=== PATIENT | female | born 1930 | race Caucasian/White ===

== ENCOUNTER 2018-08-09 09:58 | Inpatient (IN) | payer MEDICARE, BC ==
[2018-08-09] MEDS ORDERED: ACETAMINOPHEN 325 MG TABLET PO ONE (10:22)
[2018-08-09] MEDS ORDERED: RINGERS SOLUTION,LACTATED 1,000 ML IV ONE (10:22)
[2018-08-09 10:35] LABS: ABSOLUTE BASOPHILS # (AUTO) 0.1 10^3/uL (0.0-0.2); ABSOLUTE MONOCYTES (AUTO) 0.7 10^3/uL (0.1-1.4); ABSOLUTE NEUT (AUTO) 13.4 10^3/uL (1.7-8.2); BASOPHILS % (AUTO) 0.4 % (0-2); EOSINOPHILS % (AUTO) 0.1 % (0-6); HEMATOCRIT 46.4 % (36.0-47.0); HEMOGLOBIN 15.6 g/dL (12.0-15.5); LYMPHOCYTES % (AUTO) 12.3 % (13-45); MEAN CORPUSCULAR HEMOGLOBIN 30.8 pg (27.0-33.4); MEAN CORPUSCULAR HGB CONC 33.6 g/dL (32.0-36.0); MEAN CORPUSCULAR VOLUME 92 fl (80-97); MONOCYTES % (AUTO) 4.5 % (3-13); PLATELET COUNT 176 10^3/uL (150-450); RED BLOOD COUNT 5.06 10^6/uL (3.72-5.28); RED CELL DISTRIBUTION WIDTH 15.4 % (11.5-14.0); SEGMENTED NEUTROPHILS % (AUTO) 82.7 % (42-78); TOTAL CELLS COUNTED % (AUTO) 100 %; WHITE BLOOD COUNT 16.2 10^3/uL (4.0-10.5)
[2018-08-09] MEDS ORDERED: DIPH/PERTUSS(ACELL)/TETANUS VAC/PF 0.5 ML SYR (>=10YO) IM ONE (10:38)
--- NOTE | 2018-08-09 10:38 | ER Document Report ---
ED General - General Stated Complaint: FALL/WEAKNESS Time Seen by Provider: 08/09/18 10:12 Notes: Patient is a 88-year-old female with hypertension that presents to the emergency department for chief complaint of fall, found on the ground. Patient states that she fell getting out of the bathroom this past Tuesday, and has been on the ground essentially since then she was able to crawl to her bed, and then was lying on her abdomen. She did urinate on herself as well. Her vaccine customer representative found her this morning, and they called EMS to bring her to the emergency department. She thinks she may have passed out from this episode as well, does not recall how long. She states she has life alert, but did not have it on her at that time. At this time she is complaining of generalized weakness, and generalized body aching, no focal pain or complaint. Denies having any headache, chest pain, shortness of breath or difficulty breathing, denies having any nausea or vomiting. Past Medical History: Hypertension, hypothyroidism Past Surgical History: Right shoulder surgery Social History: Currently lives at home by herself, denies tobacco or alcohol use. Family History: Reviewed and noncontributory for presenting illness Allergies: Reviewed, see documented allergy list. REVIEW OF SYSTEMS: Unless otherwise stated in this report the patient's positive and negative responses for review of systems for constitutional, eyes, ENT, cardiovascular, respiratory, gastrointestinal, neurological, genitourinary, musculoskeletal, and integumentary systems and related systems to the presenting problem are either as stated in the HPI or were not pertinent or were negative for the symptoms and/or complaints related to the presenting medical problem. PHYSICAL EXAMINATION: Vital signs reviewed, nursing noted reviewed. GENERAL: Elderly female, no immediate or acute distress HEAD: Superficial abrasions noted to the bilateral cheeks and forehead, normocephalic. EYES: Eyes appear normal, extraocular movements intact, sclera anicteric, conjunctiva are normal. ENT: nares patent, oropharynx clear without exudates. Moist mucous membranes. NECK: Normal range of motion, supple without lymphadenopathy LUNGS: Breath sounds clear to auscultation bilaterally and equal. No wheezes rales or rhonchi. HEART: Regular rate and rhythm without murmurs ABDOMEN: Soft, nontender, normoactive bowel sounds. No rebound, guarding, or rigidity. No masses appreciated. EXTREMITIES: Nontender, good range of motion, no pitting or edema. Multiple skin tears noted. NEUROLOGICAL: No focal neurological deficits. Moves all extremities spontaneously Motor and sensory grossly intact on exam. PSYCH: Normal mood, normal affect. SKIN: Warm, Dry, normal turgor, patient has excoriations noted to the abdomen, and the lower extremities, multiple skin tears noted to the upper and lower extremities. No deep lacerations noted. TRAVEL OUTSIDE OF THE [place] IN LAST 30 DAYS: No - Related Data Allergies/Adverse Reactions: No Known Allergies Allergy (Verified 08/09/18 11:03) Past Medical History - Social History Smoking Status: Former Smoker Family History: Reviewed & Not Pertinent Physical Exam - Vital signs Vitals: Temp Pulse Resp BP Pulse Ox 98.4 F 77 26 H 164/59 H 96 08/09/18 10:23 08/09/18 10:23 08/09/18 10:23 08/09/18 10:23 08/09/18 10:23 Course - Re-evaluation Re-evalutation: Patient seen and examined vital signs reviewed. Laboratory data and imaging were ordered as appropriate for the patient's presenting symptoms and complaint, with consideration of any critical or life threatening conditions that may be associated with their obtained history and exam as noted above. Patient was treated with IV fluids, and Tylenol, and her troponin came back marginally positive, I did give her 324 mg of chewable aspirin Results were reviewed when available and demonstrated elevated troponin at 0.11 , slightly elevated creatinine kinase, there was some protein and blood in her urine, presumed to be myoglobin, this was sent for myoglobin analysis, she did have a mild leukocytosis, the rest of her blood work however was essentially unremarkable, renal function was normal. CT of the head and cervical spine were negative, chest x-ray negative. The patient was re-evaluated and was improved and stated that her pain was tolerable, she was updated on her tetanus Evaluation was most consistent with multiple contusions, possible mild rhabdomyolysis, elevated troponin Results were discussed with the patient at this point after careful consideration I feel that that patient should be admitted to the hospital. This was discussed with the patient that it is in the best interest for their care to be admitted for further evaluation and management. Patient agreed with this plan of care. A call was placed to the admitted physician, FAUSTINA Chaves who graciously accepted the patient onto their service. *Note is created using voice recognition software and may contain spelling, syntax or grammatical errors. Laboratory 08/09/18 08/09/18 08/09/18 09:30 09:30 09:30 WBC 16.2 H RBC 5.06 Hgb 15.6 H Hct 46.4 MCV 92 MCH 30.8 MCHC 33.6 RDW 15.4 H Plt Count 176 Seg Neutrophils % 82.7 H Lymphocytes % 12.3 L Monocytes % 4.5 Eosinophils % 0.1 Basophils % 0.4 Absolute Neutrophils 13.4 H Absolute Lymphocytes 2.0 Absolute Monocytes 0.7 Absolute Eosinophils 0.0 Absolute Basophils 0.1 Sodium 143.3 Potassium 4.5 Chloride 110 H Carbon Dioxide 21 L Anion Gap 12 BUN 44 H Creatinine 0.99 Est GFR ( Amer) > 60 Est GFR (Non-Af Amer) 53 L Glucose 115 H Calcium 9.9 Total Bilirubin 0.8 Direct Bilirubin 0.3 Neonat Total Bilirubin Not Reportable Neonat Direct Bilirubin Not Reportable Neonat Indirect Bili Not Reportable AST 44 H ALT 25 Alkaline Phosphatase 116 Creatine Kinase 148 H Troponin I 0.117 NT-Pro-B Natriuret Pep Total Protein 7.1 Albumin 3.7 Urine Color Urine Appearance Urine pH Ur Specific [place] Urine Protein Urine Glucose (UA) Urine Ketones Urine Blood Urine Nitrite Urine Bilirubin Urine Urobilinogen Ur Leukocyte Esterase Urine RBC Urine WBC Ur Squamous Epith Cells Urine Bacteria Hyaline Casts Urine Mucus Urine Ascorbic Acid 08/09/18 08/09/18 08/09/18 13:15 13:24 13:24 WBC RBC Hgb Hct MCV MCH MCHC RDW Plt Count Seg Neutrophils % Lymphocytes % Monocytes % Eosinophils % Basophils % Absolute Neutrophils Absolute Lymphocytes Absolute Monocytes Absolute Eosinophils Absolute Basophils Sodium Potassium Chloride Carbon Dioxide Anion Gap BUN Creatinine Est GFR ( Amer) Est GFR (Non-Af Amer) Glucose Calcium Total Bilirubin Direct Bilirubin Neonat Total Bilirubin Neonat Direct Bilirubin Neonat Indirect Bili AST ALT Alkaline Phosphatase Creatine Kinase Troponin I 0.126 NT-Pro-B Natriuret Pep 2580 H Total Protein Albumin Urine Color YELLOW Urine Appearance SLIGHTLY HAZY Urine pH 5.0 Ur Specific [place] 1.020 Urine Protein 100 H Urine Glucose (UA) 50 H Urine Ketones 25 H Urine Blood SMALL H Urine Nitrite NEGATIVE Urine Bilirubin NEGATIVE Urine Urobilinogen NEGATIVE Ur Leukocyte Esterase NEGATIVE Urine RBC 0-1 Urine WBC 0-1 Ur Squamous Epith Cells FEW Urine Bacteria TRACE Hyaline Casts 20-30 Urine Mucus 3+ Urine Ascorbic Acid NEGATIVE Knee X-Ray 08/09/18 00:00 IMPRESSION: Knee joint effusion. No acute fracture. Osteoarthritis patellofemoral and medial compartments Cervical Spine CT 08/09/18 10:22 IMPRESSION: No acute posttraumatic changes. Minimal degenerative change. Head CT 08/09/18 10:22 IMPRESSION: NO ACUTE INTRACRANIAL IMAGING FINDINGS. Mild mucosal thickening both maxillary sinuses. EVIDENCE OF ACUTE STROKE: NO. Chest X-Ray 08/09/18 10:23 IMPRESSION: NO ACUTE RADIOGRAPHIC FINDING IN THE CHEST. - Vital Signs Vital signs: Temp Pulse Resp BP Pulse Ox 97.8 F 70 17 132/60 H 98 08/09/18 17:15 08/09/18 17:15 08/09/18 17:15 08/09/18 17:15 08/09/18 17:15 - Laboratory Result Diagrams: 08/09/18 09:30 08/09/18 09:30 Laboratory results interpreted by me: 08/09/18 08/09/18 08/09/18 09:30 09:30 13:15 WBC 16.2 H Hgb 15.6 H RDW 15.4 H Seg Neutrophils % 82.7 H Lymphocytes % 12.3 L Absolute Neutrophils 13.4 H Chloride 110 H Carbon Dioxide 21 L BUN 44 H Est GFR (Non-Af Amer) 53 L Glucose 115 H AST 44 H Creatine Kinase 148 H NT-Pro-B Natriuret Pep Urine Protein 100 H Urine Glucose (UA) 50 H Urine Ketones 25 H Urine Blood SMALL H 08/09/18 13:24 WBC Hgb RDW Seg Neutrophils % Lymphocytes % Absolute Neutrophils Chloride Carbon Dioxide BUN Est GFR (Non-Af Amer) Glucose AST Creatine Kinase NT-Pro-B Natriuret Pep 2580 H Urine Protein Urine Glucose (UA) Urine Ketones Urine Blood - EKG Interpretation by Me Additional EKG results interpreted by me: EKG demonstrates sinus rhythm with single PAC, normal axis, QTC 514 ms, small Q waves noted in leads II, III and aVF, no ST or T wave changes noted. No prior for comparison. Discharge - Discharge Clinical Impression: Elevated troponin, Skin tear Closed head injury Qualifiers: Encounter type: initial encounter Qualified Code(s): S09.90XA - Unspecified injury of head, initial encounter Fall Qualifiers: Encounter type: initial encounter Qualified Code(s): W19.XXXA - Unspecified fall, initial encounter Leukocytosis Qualifiers: Leukocytosis type: unspecified Qualified Code(s): D72.829 - Elevated white blood cell count, unspecified Condition: Stable Disposition: ADMITTED OBSERVATION Admitting Provider: Dania Chaves Unit Admitted: Telemetry
[2018-08-09 10:57] LABS: ALANINE AMINOTRANSFERASE 25 U/L (9-52); ALBUMIN 3.7 g/dL (3.5-5.0); ALKALINE PHOSPHATASE 116 U/L (38-126); ANION GAP 12 (5-19); ASPARTATE AMINO TRANSFERASE 44 U/L (14-36); BILIRUBIN,DIRECT 0.3 mg/dL (0.0-0.4); BILIRUBIN,TOTAL 0.8 mg/dL (0.2-1.3); BLOOD UREA NITROGEN 44 mg/dL (7-20); CALCIUM 9.9 mg/dL (8.4-10.2); CARBON DIOXIDE 21 mmol/L (22-30); CHLORIDE 110 mmol/L (98-107); CREATINE KINASE 148 U/L (30-135); GLUCOSE 115 mg/dL (75-110); POTASSIUM 4.5 mmol/L (3.6-5.0); SODIUM 143.3 mmol/L (137-145); TOTAL PROTEIN 7.1 g/dL (6.3-8.2)
--- NOTE | 2018-08-09 11:04 | RADIOLOGY REPORT (SQ) ---
EXAM DESCRIPTION: CHEST SINGLE VIEW COMPLETED DATE/TIME: 08/09/2018 10:43 am REASON FOR STUDY: fall, syncope COMPARISON: None. EXAM PARAMETERS: NUMBER OF VIEWS: One view. TECHNIQUE: Single frontal radiographic view of the chest acquired. RADIATION DOSE: NA LIMITATIONS: None. FINDINGS: LUNGS AND PLEURA: No opacities, masses or pneumothorax. No pleural effusion. Cardiophreni c fat pad left base. MEDIASTINUM AND HILAR STRUCTURES: No masses. Contour normal. HEART AND VASCULAR STRUCTURES: Heart normal in size. Normal vasculature. BONES: Status post right total shoulder replacement. Severe degenerative change left shoulder HARDWARE: None in the chest. OTHER: No other significant finding. IMPRESSION: NO ACUTE RADIOGRAPHIC FINDING IN THE CHEST. TECHNICAL DOCUMENTATION: JOB ID: [id number] [employer]- All Rights Reserved Reading location - IP/workstation name: [email or web address]
[2018-08-09] MEDS ORDERED: ASPIRIN 81 MG TABLET, CHEWABLE PO ONE (11:10)
--- NOTE | 2018-08-09 12:00 | RADIOLOGY REPORT (SQ) ---
EXAM DESCRIPTION: CT HEAD WITHOUT COMPLETED DATE/TIME: 08/09/2018 11:43 am REASON FOR STUDY: fall, head injury COMPARISON: None. TECHNIQUE: Axial images acquired through the brain without intravenous contrast. Images reviewed wi th bone, brain and subdural windows. Additional sagittal and coronal reconstructions were generated. Images stored on PACS. All CT scanners at this facility use dose modulation, iterative reconstruction, and/or weight based d osing when appropriate to reduce radiation dose to as low as reasonably achievable (ALARA). [facility]: Dose Right [facility]: CareDose [facility]: Dose Right [facility]: Teradose 4D [facility]: Smart Six3 RADIATION DOSE: CT Rad equipment meets quality standard of care and radiation dose reduction techniq ues were employed. CTDIvol: 53.2 mGy. DLP: 937 mGy-cm. mGy. LIMITATIONS: None. FINDINGS: VENTRICLES: Prominent ventricles secondary to involutional atrophy. CEREBRUM: No masses. No hemorrhage. No midline shift. No evidence for acute infarction. Normal gra y/white matter differentiation. No areas of low density in the white matter. CEREBELLUM: No masses. No hemorrhage. No alteration of density. No evidence for acute infarction. EXTRAAXIAL SPACES: No fluid collections. No masses. ORBITS AND GLOBE: No intra- or extraconal masses. Normal contour of globe without masses. CALVARIUM: No fracture. PARANASAL SINUSES: Mild mucosal thickening maxillary sinuses. SOFT TISSUES: No mass or hematoma. OTHER: No other significant finding. IMPRESSION: NO ACUTE INTRACRANIAL IMAGING FINDINGS. Mild mucosal thickening both maxillary sinuses. EVIDENCE OF ACUTE STROKE: NO. COMMENT: Quality ID # [id number]: Final reports with documentation of one or more dose reduction techniques (e.g., Automated exposure control, adjustment of the mA and/or kV according to patient size, use of iterative reconstruction technique) TECHNICAL DOCUMENTATION: JOB ID: [id number] [employer]- All Rights Reserved Reading location - IP/workstation name: [email or web address]
--- NOTE | 2018-08-09 12:02 | RADIOLOGY REPORT (SQ) ---
EXAM DESCRIPTION: CT CERVICAL SPINE WITHOUT COMPLETED DATE/TIME: 08/09/2018 11:43 am REASON FOR STUDY: fall, head injury COMPARISON: None. TECHNIQUE: Axial images acquired through the cervical spine without intravenous contrast. Images re viewed with lung, soft tissue and bone windows. Reconstructed coronal and sagittal MPR images review ed. Images stored on PACS. All CT scanners at this facility use dose modulation, iterative reconstruction, and/or weight based d osing when appropriate to reduce radiation dose to as low as reasonably achievable (ALARA). [facility]: Dose Right [facility]: CareDose [facility]: Dose Right [facility]: Teradose 4D [facility]: [employer] RADIATION DOSE: CT Rad equipment meets quality standard of care and radiation dose reduction techniq ues were employed. CTDIvol: 15.3 mGy. DLP: 241 mGy-cm. mGy. LIMITATIONS: None. FINDINGS: ALIGNMENT: Anatomic. MINERALIZATION: Normal. VERTEBRAL BODIES: No fractures or dislocation. DISCS: No significant disc disease. FACETS, LATERAL MASSES, POSTERIOR ELEMENTS: Moderate facet arthropathy lower spine. HARDWARE: None in the spine. VISUALIZED RIBS: No fractures. LUNG APICES AND SOFT TISSUES: No significant or acute findings. OTHER: No other significant finding. IMPRESSION: No acute posttraumatic changes. Minimal degenerative change. TECHNICAL DOCUMENTATION: JOB ID: [id number] Quality ID # [id number]: Final reports with documentation of one or more dose reduction techniques (e.g., Au tomated exposure control, adjustment of the mA and/or kV according to patient size, use of iterative reconstruction technique) 2010 [email or web address]- All Rights Reserved Reading location - IP/workstation name: [email or web address]
[2018-08-09 13:48] LABS: APPEARANCE,URINE SLIGHTLY HAZY; BILIRUBIN,URINE NEGATIVE (NEGATIVE); GLUCOSE, URINE 50 mg/dL (NEGATIVE); KETONES,URINE 25 mg/dL (NEGATIVE)
[2018-08-09 13:49] LABS: ADD MANUAL MICROSCOPIC YES; BACTERIA,URINE TRACE /HPF; COLOR,URINE YELLOW; HYALINE CASTS, URINE 20-30 /LPF; LEUKOCYTE ESTERASE,URINE NEGATIVE (NEGATIVE); NITRITE,URINE NEGATIVE (NEGATIVE); PROTEIN,URINE 100 mg/dL (NEGATIVE); RBC,URINE 0-1 /HPF; UROBILINOGEN,URINE NEGATIVE mg/dL (<2.0); WBC,URINE 0-1 /HPF
[2018-08-09] MEDS ORDERED: MAG HYDROX/AL HYDROX/SIMETH SUSP 30 ML UDCUP PO PRN (15:50)
[2018-08-09] MEDS ORDERED: PROMETHAZINE HCL 25 MG TABLET PO PRN (15:50)
[2018-08-09] MEDS ORDERED: MAGNESIUM HYDROXIDE SUSP 30 ML UDCUP PO PRN (15:50)
[2018-08-09] MEDS ORDERED: PROMETHAZINE HCL INJ 25 MG/1 ML VIAL IV PRN (15:50)
[2018-08-09] MEDS ORDERED: NITROGLYCERIN 0.4 MG/TAB 25 TAB/BOTTLE SL PRN (16:08)
--- NOTE | 2018-08-09 16:14 | PDOC H&P ---
History of Present Illness Admission Date/PCP: 08/09/18 15:23 RICHI BRAY MD History of Present Illness: JESUS CLARK is a 88 year old female with a known past medical history of hypertension, hypothyroidism; otherwise MHx is limited secondary to patient confusion/and willingness to participate in conversation. The patient was found by her group practice pediatrician this morning on the floor. Per patient she fell approximately 4 days ago when her knees gave out on her. She was able to crawl to the bed but was unable to stand back up or reach a phone for assistance. The patient reports that she did hit her head but denies loss of consciousness. Upon being told that the patient was recommended to be admitted, she refused to answer further questions. She was noted to be alert and oriented to self and year. She denied headache, dizziness, chest pain, palpitations, dyspnea and only complaint of left knee pain. Evaluation in the emergency department revealed leukocytosis (WBCs 16.2), dehydration (elevated hemoglobin of 15.6, BUN of 44, and creatinine of 0.99), minimally elevated CK (148), and an elevated troponin to 0.117. EKG was without acute findings; no ST segment elevation or depression. Chest x- ray, head CT, C-spine CT are unremarkable other than chronic changes. She is referred to the hospitalist service for admission and management of a type II non-STEMI, dehydration, generalized weakness resulting in fall. Past Medical History Cardiac Medical History: Reports: Hypertension Denies: Coronary Artery Disease, Myocardial Infarction, Hyperlipidema Pulmonary Medical History: Reports: None EENT Medical History: Reports: None Neurological Medical History: Reports: None Endocrine Medical History: Reports: Hypothyroidism Denies: Diabetes Mellitus Type 2 Renal/ Medical History: Reports: None GI Medical History: Reports: None Musculoskeltal Medical History: Reports: Arthritis Skin Medical History: Reports: None Psychiatric Medical History: Reports: None Traumatic Medical History: Reports: None Hematology: Reports: None Infectious Medical History: Reports: None Past Surgical History Past Surgical History: Reports: Cholecystectomy, Hysterectomy, Orthopedic Surgery - Rt shoulder Social History Information Source: Patient, Relative, [facility] Records Lives with: Alone Smoking Status: Never Smoker Frequency of Alcohol Use: None Hx Recreational Drug Use: No Hx Prescription Drug Abuse: No - Advance Directive Resuscitation Status: Full Code Surrogate healthcare decision maker:: Patient unwilling to state. Family History Family History: Reviewed & Not Pertinent Parental Family History Reviewed: Yes Children Family History Reviewed: Yes Sibling(s) Family History Reviewed.: Yes Medication/Allergy Home Medications: Amlodipine Besylate [Norvasc 5 mg Tablet] 5 mg PO QHS 08/09/18 Aspirin [Aspirin EC] 81 mg PO DAILY 08/09/18 Hydroxyzine HCl [Hydroxyzine HCl] 25 mg PO HSP PRN 08/09/18 Levothyroxine Sodium [Synthroid 0.1 mg Tablet] 0.1 mg PO Q6AM 08/09/18 Allergies/Adverse Reactions: No Known Allergies Allergy (Verified 08/09/18 11:03) Review of Systems Constitutional: PRESENT: weakness. ABSENT: chills, fever(s), headache(s), weight gain, weight loss Eyes: ABSENT: visual disturbances Ears: ABSENT: hearing changes Cardiovascular: ABSENT: chest pain, dyspnea on exertion, edema, orthropnea, palpitations Respiratory: ABSENT: cough, hemoptysis Gastrointestinal: ABSENT: abdominal pain, constipation, diarrhea, hematemesis, hematochezia, nausea, vomiting Genitourinary: ABSENT: dysuria, hematuria Musculoskeletal: PRESENT: joint swelling - Left main, muscle weakness Integumentary: ABSENT: rash, wounds Neurological: PRESENT: confusion, tremor(s) - Right hand. ABSENT: abnormal gait , abnormal speech, dizziness, focal weakness, syncope Psychiatric: ABSENT: anxiety, depression, homidical ideation, suicidal ideation Endocrine: ABSENT: cold intolerance, heat intolerance, polydipsia, polyuria Hematologic/Lymphatic: ABSENT: easy bleeding, easy bruising Physical Exam Vital Signs: Temp Pulse Resp BP Pulse Ox 98.4 F 77 26 H 164/59 H 96 08/09/18 10:23 08/09/18 10:23 08/09/18 10:23 08/09/18 10:23 08/09/18 10:23 General appearance: PRESENT: no acute distress, well-developed, well-nourished - Overweight. ABSENT: cooperative - Refuses to answer questions once told that she is being recommended to be admitted Head exam: PRESENT: atraumatic, normocephalic Eye exam: PRESENT: conjunctiva pink, EOMI, PERRLA. ABSENT: scleral icterus Ear exam: PRESENT: normal external ear exam Mouth exam: PRESENT: dry mucosa, tongue midline Neck exam: ABSENT: carotid bruit, JVD, lymphadenopathy, thyromegaly Respiratory exam: PRESENT: clear to auscultation mildred, symmetrical, unlabored. ABSENT: rales, rhonchi, wheezes Cardiovascular exam: PRESENT: clicks, RRR, systolic murmur. ABSENT: diastolic murmur, rubs Pulses: PRESENT: normal dorsalis pedis pul Vascular exam: PRESENT: normal capillary refill GI/Abdominal exam: PRESENT: normal bowel sounds, soft. ABSENT: distended, guarding, mass, organolmegaly, rebound, tenderness Rectal exam: PRESENT: deferred Extremities exam: PRESENT: full ROM, tenderness - Generalized; especially to bilateral knees and upper extremities. ABSENT: calf tenderness, clubbing, pedal edema Neurological exam: PRESENT: alert, awake, oriented to person, oriented to time, oriented to situation, CN II-XII grossly intact, other - Exam limited secondary to patient participation. ABSENT: oriented to place, motor sensory deficit Psychiatric exam: PRESENT: other - Withdrawn. ABSENT: homicidal ideation, suicidal ideation Skin exam: PRESENT: dry, warm, other - Numerous ecchymosis and skin tears to extremities; abrasion to right cheek with periorbital edema, skin tears to bilateral upper extremities (no surrounding erythema or drainage), 2 cm round unstageable pressure wound to left knee with fluid-filled blister intact over wound, erythema and edema to bilateral knees. ABSENT: cyanosis, rash Results Impressions: Cervical Spine CT 08/09/18 10:22 IMPRESSION: No acute posttraumatic changes. Minimal degenerative change. Head CT 08/09/18 10:22 IMPRESSION: NO ACUTE INTRACRANIAL IMAGING FINDINGS. Mild mucosal thickening both maxillary sinuses. EVIDENCE OF ACUTE STROKE: NO. Chest X-Ray 08/09/18 10:23 IMPRESSION: NO ACUTE RADIOGRAPHIC FINDING IN THE CHEST. Assessment & Plan - Diagnosis (1) Non-STEMI (non-ST elevated myocardial infarction) Is this a current diagnosis for this admission?: Yes Plan: On admission, the patient was noted to have an elevated troponin to 0.117; trending upwards. Currently 0.126. It is unclear whether the patient had a primary cardiac event, though it is most likely troponin leak following fall. CK is minimally elevated to 148. Renal function is acceptable. Myoglobin is pending. Chest x-ray is benign. EKG reveals NSR with prolonged QTC. No acute changes/ST segment elevation or depression. The patient is admitted to the medical floor on continuous cardiac telemetry. We will continue to trend troponins. She is placed on daily aspirin and statin therapy. We will continue her home dose Norvasc. Nitroglycerin SL tabs as needed for chest pain.nitro Will obtain TSH, lipid panel, and A1c for risk stratification with a.m. labs. Cardiology consultation. Given the timing of the patient's fall, like a previous cardiac history and recent cardiac symptoms, and continued upward trend of troponin, it is unlikely that cardiac event precipitated her fall and more likely to be troponin leak despite reassuring kidney function and CK. Will defer full dose anticoagulation to cardiology's discretion. (2) Dehydration Is this a current diagnosis for this admission?: Yes Plan: Secondary to poor p.o. intake as a result of fall and immobility times 4 days. Evidenced by elevated hemoglobin, elevated BUN, mildly elevated creatinine. The patient has already received a 1 L LR bolus by the ED provider. We will continue maintenance IV fluids. Encourage p.o. intake. Strict I&O's. Daily chemistry (3) HTN (hypertension) Is this a current diagnosis for this admission?: Yes Plan: We will continue the patient's home dose Norvasc. (4) Hypothyroid Is this a current diagnosis for this admission?: Yes Plan: Will assess TSH with a.m. labs. Continue the patient's home dose of levothyroxine. (5) Leukocytosis Qualifiers: Leukocytosis type: unspecified Qualified Code(s): D72.829 - Elevated white blood cell count, unspecified (6) Fall Qualifiers: Encounter type: initial encounter Qualified Code(s): W19.XXXA - Unspecified fall, initial encounter Is this a current diagnosis for this admission?: Yes Plan: The patient reports that she had a fall at home due to her knees giving out. The patient is typically independently ambulatory without assistive devices. Per family, the patient is able to climb a flight of stairs and completes her own grocery shopping while ambulatory. PT/OT evaluations. Fall precautions. Discharge planning is consulted; anticipate the patient will require rehab versus home health at discharge. (7) Left knee pain Qualifiers: Chronicity: acute Qualified Code(s): M25.562 - Pain in left knee Is this a current diagnosis for this admission?: Yes Plan: Patient's knee is noted to have a 2 cm unstageable pressure wound to her knee with medial erythema and generalized edema following a fall. X-ray pending. Tylenol as needed for discomfort. Ice and repositioning for discomfort. - Time Time Spent: 50 to 70 Minutes Medications reviewed and adjusted accordingly: Yes Anticipated discharge: Acute Rehab - Inpatient Certification Based on my medical assessment, after consideration of the patient's comorbidities, presenting symptoms, or acuity I expect that the services needed warrant INPATIENT care.: Yes I certify that my determination is in accordance with my understanding of Medicare's requirements for reasonable and necessary INPATIENT services [42 CFR 412.3e].: Yes Medical Necessity: Need For IV Fluids, Need For Continuous Telemetry Monitoring
[2018-08-09] MEDS: RINGERS SOLUTION,LACTATED 1,000 ML IV PRN (16:17)
--- NOTE | 2018-08-09 16:27 | RADIOLOGY REPORT (SQ) ---
EXAM DESCRIPTION: KNEE LEFT 3 VIEWS COMPLETED DATE/TIME: 08/09/2018 4:13 pm REASON FOR STUDY: fall, lt knee pain and edema I21.4 NON-ST ELEVATION (NSTEMI) MYOCARDIAL INFARCTIO N R73.9 HYPERGLYCEMIA, UNSPECIFIED E03.9 HYPOTHYROIDISM, UNSPECIFIED Fell 4 days ago, continued knee pain and swelling COMPARISON: None. NUMBER OF VIEWS: Two views. TECHNIQUE: AP and lateral radiographic images acquired of the left knee. LIMITATIONS: None. FINDINGS: MINERALIZATION: Osteopenic BONES: No acute fracture or dislocation. No worrisome bone lesions. JOINT: Suprapatellar knee joint effusion SOFT TISSUES: No soft tissue swelling. No radio-opaque foreign body. OTHER: High-grade medial and patellofemoral joint space narrowing with bony spurring IMPRESSION: Knee joint effusion. No acute fracture. Osteoarthritis patellofemoral and medial stacy rtments TECHNICAL DOCUMENTATION: JOB ID: [id number] [employer] All Rights Reserved Reading location - IP/workstation name: [email or web address]
--- NOTE | 2018-08-09 18:18 | EKG REPORT ---
SEVERITY:- ABNORMAL ECG - SINUS RHYTHM ATRIAL PREMATURE COMPLEX PROBABLE LEFT ATRIAL ABNORMALITY PROLONGED QT INTERVAL : Confirmed by: Jazmyne Dwyer MD 09-Aug-2018 18:17:03
[2018-08-09] MEDS: DOCUSATE SODIUM 100 MG CAPSULE PO SCH (18:54)
--- NOTE | 2018-08-09 20:09 | PDOC CONSULTATION ---
Consultation Consult Date: 08/09/18 Attending physician:: MICHAEL HERNANDEZ Consult reason:: Positive troponin I History of Present Illness Admission Date/PCP: 08/09/18 15:44 RICHI BRAY MD Patient complains of: History of fall and generalized body pain History of Present Illness: JESUS CLARK is a 88 year old female with a known past medical history of hypertension, hypothyroidism; otherwise MHx is limited secondary to patient confusion/and willingness to participate in conversation. The patient was found by her web press operator apprentice this morning on the floor. Per patient she fell approximately 4 days ago when her knees gave out on her. She was able to crawl to the bed but was unable to stand back up or reach a phone for assistance. The patient reports that she did hit her head but denies loss of consciousness. Upon being told that the patient was recommended to be admitted, she refused to answer further questions. She was noted to be alert and oriented to self and year. She denied headache, dizziness, chest pain, palpitations, dyspnea and only complaint of left knee pain. Evaluation in the emergency department revealed leukocytosis (WBCs 16.2), dehydration (elevated hemoglobin of 15.6, BUN of 44, and creatinine of 0.99), minimally elevated CK (148), and an elevated troponin to 0.117. EKG was without acute findings; no ST segment elevation or depression. Chest x- ray, head CT, C-spine CT are unremarkable other than chronic changes. She is referred to the hospitalist service for admission and management of a type II non-STEMI, dehydration, generalized weakness resulting in fall. This history was confirmed and reviewed. Patient is son and daughter at bedside. They could not add much to the exam. Past Medical History Cardiac Medical History: Reports: Hypertension Denies: Coronary Artery Disease, Myocardial Infarction, Hyperlipidema Pulmonary Medical History: Reports: None EENT Medical History: Reports: None Neurological Medical History: Reports: None Endocrine Medical History: Reports: Hypothyroidism Denies: Diabetes Mellitus Type 2 Renal/ Medical History: Reports: None GI Medical History: Reports: None Musculoskeltal Medical History: Reports: Arthritis Skin Medical History: Reports: None Psychiatric Medical History: Reports: None Denies: Depression Traumatic Medical History: Reports: None Hematology: Reports: None Infectious Medical History: Reports: None Past Surgical History Past Surgical History: Reports: Cholecystectomy, Hysterectomy, Orthopedic Surgery - Rt shoulder Social History Information Source: Relative Lives with: Alone Smoking Status: Former Smoker Frequency of Alcohol Use: None Hx Recreational Drug Use: No Drugs: None Hx Prescription Drug Abuse: No - Advance Directive Resuscitation Status: Full Code Surrogate healthcare decision maker:: Patient's son and daughter at the surrogate decision-maker Family History Family History: Hypertension Parental Family History Reviewed: Yes Children Family History Reviewed: Yes Sibling(s) Family History Reviewed.: Yes Medication/Allergy Home Medications: Amlodipine Besylate [Norvasc 5 mg Tablet] 5 mg PO QHS 08/09/18 Aspirin [Aspirin EC] 81 mg PO DAILY 08/09/18 Hydroxyzine HCl [Hydroxyzine HCl] 25 mg PO HSP PRN 08/09/18 Levothyroxine Sodium [Synthroid 0.1 mg Tablet] 0.1 mg PO Q6AM 08/09/18 Allergies/Adverse Reactions: No Known Allergies Allergy (Verified 08/09/18 11:03) Review of Systems ROS unobtainable: Due to mental status Physical Exam Vital Signs: Temp Pulse Resp BP Pulse Ox 97.7 F 73 17 134/49 H 97 08/09/18 19:00 08/09/18 19:00 08/09/18 19:00 08/09/18 19:00 08/09/18 19:00 Intake & Output 08/08/18 08/09/18 08/10/18 06:59 06:59 06:59 Intake Total 52 Balance 52 Weight 70.8 kg Exam: GENERAL: well-nourished and in no acute distress. Patient is alert but orientation could not be checked as either patient is confused or is not willing to answer. HEAD: Atraumatic, normocephalic. EYES: Pupils equal round and reactive to light, extraocular movements intact, sclera anicteric, conjunctiva are normal. ENT: TMs normal, nares patent, oropharynx clear without exudates. Moist mucous membranes. No oral ulcerations or bleeding gums noted NECK: supple without lymphadenopathy or JVD. Trachea is central. No cervical or axillary lymphadenopathy noted. Carotids are 2+ LUNGS: Breath sounds bibasilar fine crackles at bases. No significant dullness noted. CHEST: Palpation of chest wall shows no significant chest wall tenderness. HEART: [place] [employer] CHIEF, No PSH, 2/6 HENRY aortic area, 1/6 farfan systolic murmur mitral area, rubs or gallops. ABDOMEN: Soft, no significant tenderness appreciated, normoactive bowel sounds. No guarding, no rebound. No rigidity noted . No masses appreciated. EXTREMITIES: Pedal pulses are 1-2+, no calf tenderness noted, Trace + pedal edema noted. No clubbing or cyanosis. NEUROLOGICAL: Patient is alert but is not able to participate in neurological exam because of patient's current mental status. PSYCH: Patient cannot participate in a neurologic and psych exam because of the patient's current mental status SKIN: No significant ecchymosis, rash, ulcerations or signs of pruritus noted. MUSCULOSKELETAL EXAM: No significant joint swelling noted. Results EKG Comments: Shows sinus rhythm, no acute ST-T wave changes are noted. Impressions: Knee X-Ray 08/09/18 00:00 IMPRESSION: Knee joint effusion. No acute fracture. Osteoarthritis patellofemoral and medial compartments Cervical Spine CT 08/09/18 10:22 IMPRESSION: No acute posttraumatic changes. Minimal degenerative change. Head CT 08/09/18 10:22 IMPRESSION: NO ACUTE INTRACRANIAL IMAGING FINDINGS. Mild mucosal thickening both maxillary sinuses. EVIDENCE OF ACUTE STROKE: NO. Chest X-Ray 08/09/18 10:23 IMPRESSION: NO ACUTE RADIOGRAPHIC FINDING IN THE CHEST. Assessment & Plan - Diagnosis (1) Elevated troponin Is this a current diagnosis for this admission?: Yes (2) HTN (hypertension) Qualifiers: Hypertension type: essential hypertension Qualified Code(s): I10 - Essential (primary) hypertension Is this a current diagnosis for this admission?: Yes (3) Mitral stenosis Qualifiers: Cardiac valve disease etiology: etiology unspecified Qualified Code(s): I05.0 - Rheumatic mitral stenosis Is this a current diagnosis for this admission?: Yes (4) Fall Qualifiers: Encounter type: initial encounter Qualified Code(s): W19.XXXA - Unspecified fall, initial encounter Is this a current diagnosis for this admission?: Yes (5) Change in mental status Qualifiers: Altered mental status type: unspecified Qualified Code(s): R41.82 - Altered mental status, unspecified Is this a current diagnosis for this admission?: Yes (6) Non-STEMI (non-ST elevated myocardial infarction) Is this a current diagnosis for this admission?: Yes - Notes Notes: Patient had a fall, most likely related to transient hypotension, transient arrhythmias. Acute mental status changes: Cause not clear, possible CVA, possible severe depression, possible dehydration and other metabolic reasons. Hypertension: Under reasonable control. Continue with home antihypertensives. Non-STEMI: Type II, currently EKG not showing any acute ischemic changes. Patient does not have any chest pain but positive troponin I. Do not believe patient has acute coronary syndrome. Troponin I elevation most likely related to transient hypotension or arrhythmias resulting in fall. Have ordered a 2D echo. Recommend antiplatelet therapy, cardiac monitoring for any transient cardiac arrhythmias. Do not feel ischemia workup is indicated. We will continue to follow patient with you. - Time Time Spent: 30 to 50 Minutes - CODE STATUS was discussed, patient remains full code. Surrogate decision-maker patient's son and daughter. Multiple medical problems were addressed. More than 50% of the time spent coordinating care, discussing management plans with involved caregivers. Management plans discussed with involved personnels. Medical decision making was of moderate to high complexity, patient's has multiple comorbidities. Medications reviewed and adjusted accordingly: Yes
[2018-08-09] MEDS: FAMOTIDINE 20 MG TABLET PO SCH (21:29)
[2018-08-09] MEDS: HEPARIN SOD (PORCINE) 5,000 UNIT/ML 1 ML SYRINGE SUBCUT SCH (21:30)
[2018-08-09] MEDS ORDERED: ATORVASTATIN CALCIUM 20 MG TABLET PO SCH (22:00)
[2018-08-09] MEDS ORDERED: AMLODIPINE BESYLATE 5 MG TABLET PO SCH (22:00)
[2018-08-10] MEDS: LEVOTHYROXINE SODIUM 0.1 MG TABLET PO SCH (05:14)
[2018-08-10] MEDS: HEPARIN SOD (PORCINE) 5,000 UNIT/ML 1 ML SYRINGE SUBCUT SCH ×3 (05:14→21:03)
[2018-08-10 08:11] LABS: ABSOLUTE BASOPHILS # (AUTO) 0.1 10^3/uL (0.0-0.2); ABSOLUTE EOSINOPHILS # (AUTO) 0.3 10^3/uL (0.0-0.6); ABSOLUTE LYMPHOCYTES (AUTO) 1.5 10^3/uL (0.5-4.7); ABSOLUTE MONOCYTES (AUTO) 0.7 10^3/uL (0.1-1.4); ABSOLUTE NEUT (AUTO) 8.8 10^3/uL (1.7-8.2); BASOPHILS % (AUTO) 0.6 % (0-2); EOSINOPHILS % (AUTO) 2.7 % (0-6); HEMATOCRIT 37.4 % (36.0-47.0); LYMPHOCYTES % (AUTO) 13.5 % (13-45); MEAN CORPUSCULAR HGB CONC 32.9 g/dL (32.0-36.0); MEAN CORPUSCULAR VOLUME 91 fl (80-97); MONOCYTES % (AUTO) 5.8 % (3-13); PLATELET COUNT 115 10^3/uL (150-450); RED BLOOD COUNT 4.11 10^6/uL (3.72-5.28); SEGMENTED NEUTROPHILS % (AUTO) 77.4 % (42-78); TOTAL CELLS COUNTED % (AUTO) 100 %; WHITE BLOOD COUNT 11.3 10^3/uL (4.0-10.5)
[2018-08-10 08:14] LABS: HEMOGLOBIN 12.3 g/dL (12.0-15.5)
[2018-08-10 08:15] LABS: ALANINE AMINOTRANSFERASE 31 U/L (9-52); ALBUMIN 2.5 g/dL (3.5-5.0); ALKALINE PHOSPHATASE 76 U/L (38-126); ASPARTATE AMINO TRANSFERASE 39 U/L (14-36); BILIRUBIN,DIRECT 0.2 mg/dL (0.0-0.4); BILIRUBIN,TOTAL 0.6 mg/dL (0.2-1.3); BLOOD UREA NITROGEN 33 mg/dL (7-20); CALCIUM 8.4 mg/dL (8.4-10.2); CREATINE KINASE 100 U/L (30-135); GLUCOSE 109 mg/dL (75-110); POTASSIUM 3.8 mmol/L (3.6-5.0); TOTAL PROTEIN 5.2 g/dL (6.3-8.2); TRIGLYCERIDES 108 mg/dL (<150)
[2018-08-10 08:16] LABS: CHOLESTEROL 126.84 mg/dL (0-200)
[2018-08-10 08:21] LABS: CARBON DIOXIDE 25 mmol/L (22-30); CHLORIDE 106 mmol/L (98-107); SODIUM 134.8 mmol/L (137-145)
[2018-08-10 08:27] LABS: DIRECT LDL 56 mg/dL (<100)
[2018-08-10 08:28] LABS: ANION GAP 4 (5-19)
--- NOTE | 2018-08-10 09:31 | XCELERA REPORT ---
[address] [address] Transthoracic Echocardiogram Report Name: JESUS CLARK Age: 88 yrs Gender: Female : 1930 Patient Status: Inpatient Patient Location: [address] [place], [place] [address] Study Date: 08/09/2018 07:43 PM Height: 65 in Weight: 156 lb BSA: 1.8 m2 Procedure: A complete two-dimensional transthoracic echocardiogram was performed (2D, M-mode, spectral and color flow Doppler). The study was technically difficult with many images being suboptimal in quality. Reason For Study: Troponin positive Ordering Physician: JAYCOB GOVEA Performed By: Milana Oakes Interpretation Summary Normal LVEF, mild LVH LV diastolic function could not be adequately assessed due to significant valve regurgitation and/or stenosis. Mitral valve is thickened and calcified with reduced mobility. Moderate to severe mitral stenosis suspected. Evaluation of mitral stenosis is somewhat complicated due to presence of moderate aortic regurgitation and suboptimal quality of the 2D echo. Moderate aortic incompetence is noted. Recommend transesophageal echocardiogram, cardiac MRI or cardiac CTA for further evaluation if clinically indicated. Study was technically difficult therefore clinical correlation is requested. MMode/2D Measurements & Calculations RVDd: 2.6 cm LVIDd: 3.2 cm FS: 30.8 % Ao root diam: 2.8 cm IVSd: 1.1 cm LVIDs: 2.2 cm EDV(Teich): 41.5 ml Ao root area: 6.0 cm2 LVPWd: 0.93 cm ESV(Teich): 16.7 ml LA dimension: 2.7 cm EF(Teich): 59.8 % Doppler Measurements & Calculations MV E max luly: MV P1/2t max luly: Ao V2 max: AI max luly: 152.1 cm/sec 223.5 cm/sec 172.5 cm/sec 201.3 cm/sec MV A max luly: MV P1/2t: 219.7 msec Ao max PG: AI max P.6 cm/sec MVA(P1/2t): 1.0 cm2 11.9 mmHg 16.4 mmHg MV E/A: 0.65 MV dec slope: AI dec slope: 100.5 cm/sec2 298.0 cm/sec2 AI P1/2t: MV dec time: 0.37 sec 586.6 msec LV V1 max PG: TV V2 max: PA V2 max: PI end-d luly: 5.4 mmHg 75.3 cm/sec 75.3 cm/sec 71.7 cm/sec LV V1 max: TV max P.3 mmHg PA max P.0 cm/sec 2.3 mmHg AV P1/2t-pr_phl: MV P1/2t-pr_phl: 609.4 msec 315.2 msec Left Ventricle The left ventricle is grossly normal size. There is mild concentric left ventricular hypertrophy. The left ventricular ejection fraction is normal. LV diastolic function could not be adequately assessed due to significant valve regurgitation and/or stenosis. Wall motion cannot be accurately commented on, but no definite regional wall motion abnormalities noted. Right Ventricle The right ventricle is grossly normal size. There is normal right ventricular wall thickness. The right ventricular systolic function is normal. Atria The right atrium is normal in size. The left atrial size is normal. Interarterial septum not well visualized and not well dopplered. Cannot comment on ASD/PFO presence. Mitral Valve There is moderate mitral leaflet calcification. There is moderate mitral annular calcification. There is moderate to severe mitral stenosis. There is a trace amount of mitral regurgitation. Aortic Valve The aortic valve is not well visualized secondary to technical limitations. The aortic valve is moderately calcified. There is no aortic valve stenosis. There is a moderate amount of aortic regurgitation. Tricuspid Valve The tricuspid valve is not well visualized, but is grossly normal. There is no tricuspid stenosis. There is a trace amount of tricuspid regurgitation. Tricuspid regurgitation jet envelope not well defined to measure RV systolic pressure accurately. Pulmonic Valve The pulmonic valve is not well visualized. Great Vessels The aortic root is not well visualized but is probably normal size. The inferior vena cava was not well visualized. : JAYCOB GOVEA > Jaycob Govea
[2018-08-10] MEDS: FAMOTIDINE 20 MG TABLET PO SCH ×2 (10:30→21:03)
[2018-08-10] MEDS: DOCUSATE SODIUM 100 MG CAPSULE PO SCH ×2 (10:30→18:05)
[2018-08-10] MEDS: ASPIRIN 81 MG TABLET, ENT COATED PO SCH (10:30)
[2018-08-10] MEDS: RINGERS SOLUTION,LACTATED 1,000 ML IV PRN ×2 (10:36)
[2018-08-10] MEDS ORDERED: ATORVASTATIN CALCIUM 20 MG TABLET PO SCH (11:10)
[2018-08-10] MEDS: CLOPIDOGREL BISULFATE 75 MG TABLET PO SCH (13:00)
--- NOTE | 2018-08-10 14:11 | RADIOLOGY REPORT (SQ) ---
EXAM DESCRIPTION: MRI HEAD WITHOUT COMPLETED DATE/TIME: 08/10/2018 1:38 pm REASON FOR STUDY: Lt side weakness, decreased alertness, ? cva I21.4 NON-ST ELEVATION (NSTEMI) MYOC ARDIAL INFARCTION R73.9 HYPERGLYCEMIA, UNSPECIFIED E03.9 HYPOTHYROIDISM, UNSPECIFIED COMPARISON: None. TECHNIQUE: Multiplanar imaging includes non-contrasted T1, T2, FLAIR, and diffusion with ADC map seq uences. Images stored on PACS. LIMITATIONS: None. FINDINGS: ANATOMY: Empty sella anatomic variant. CSF SPACES: Atrophy induced prominence of ventricles and CSF spaces. CEREBRUM: High signal intensity lesions scattered throughout the white matter on FLAIR imaging with d istribution suggesting micro-vascular ischemic changes. No evidence of hemorrhage, mass, or extraaxi al fluid collection. POSTERIOR FOSSA: Old watershed infarcts. No hemorrhage. No edema, masses or mass effect. Internal au ditory canals, cerebello-pontine angles, mastoids normal. DIFFUSION IMAGING: Geographic abnormal signal bright on diffusion, dark on ADC map right centrum semi ovale. Much smaller more focal area of similar abnormal signal in the left frontal lobe cortex post central gyrus. ORBITS: No masses. Globes normal. PARANASAL SINUSES: No fluid levels. Mucosa normal. OTHER: No other significant finding. IMPRESSION: Acute, nonhemorrhagic infarcts bilateral frontal lobe. EVIDENCE OF ACUTE STROKE: YES. Right anterior cerebral and left middle cerebral arteries. TECHNICAL DOCUMENTATION: JOB ID: [id number] [employer]- All Rights Reserved Reading location - IP/workstation name: [email or web address]
[2018-08-10] MEDS ORDERED: PROMETHAZINE HCL INJ 25 MG/1 ML VIAL IV PRN (14:30)
[2018-08-10] MEDS ORDERED: DEXTROSE 40% GEL 15 GM TUBE PO PRN ×2 (15:02)
[2018-08-10] MEDS ORDERED: GLUCAGON,HUMAN RECOMB 1 MG INJ IM PRN (15:02)
[2018-08-10] MEDS ORDERED: DEXTROSE 50%-WATER 25 GM/50 ML DISP.SYRIN IV PRN ×2 (15:02)
[2018-08-10] MEDS ORDERED: INSULIN LISPRO 100 UNIT/ML 3 ML VIAL SUBCUT PRN (15:02)
--- NOTE | 2018-08-10 15:25 | RADIOLOGY REPORT (SQ) ---
EXAM DESCRIPTION: CAROTID DOPPLER COMPLETED DATE/TIME: 08/10/2018 3:16 pm REASON FOR STUDY: CVA workup; lt side weakness I21.4 NON-ST ELEVATION (NSTEMI) MYOCARDIAL INFARCTIO N R73.9 HYPERGLYCEMIA, UNSPECIFIED E03.9 HYPOTHYROIDISM, UNSPECIFIED COMPARISON: None. TECHNIQUE: Grayscale ultrasound, Doppler velocity and spectra, and color Doppler images acquired of the extra-cranial carotid and vertebral arteries. Images stored on PACS. LIMITATIONS: Tortuous vessels. FINDINGS: RIGHT CAROTID CCA Velocities: Within normal limits. ICA Velocities Peak systolic 0.73 m/s. End diastolic 0.09 m/s. Proximal ICA/CCA peak systolic ratio 1.8. Spectra normal. No significant plaque. LEFT CAROTID CCA Velocities: Within normal limits. ICA Velocities Peak systolic 0.52 m/s. End diastolic 0.11 m/s. Proximal ICA/CCA peak systolic ratio 1.1. Spectra normal. No significant plaque. VERTEBRAL ARTERIES: Antegrade flow. Normal waveforms. SUBCLAVIAN ARTERIES: Not imaged. OTHER: No other significant finding. IMPRESSION: NO HEMODYNAMICALLY SIGNIFICANT STENOSIS. COMMENT: Quality ID #[id number]: Velocity criteria are extrapolated from the diameter data as defined by t he Society of Radiologists in Ultrasound Consensus Conference. Radiology 2003: 229; 340-346. TECHNICAL DOCUMENTATION: JOB ID: [id number] [employer]- All Rights Reserved Reading location - IP/workstation name: [email or web address]-RR
[2018-08-10] MEDS: NORMAL SALINE 1000 ML 1,000 ML IV PRN (15:31)
[2018-08-10] MEDS ORDERED: HYDRALAZINE HCL INJ/PF 20 MG/1 ML SDV IV PRN (17:36)
--- NOTE | 2018-08-10 17:52 | PDOC PROGRESS REPORT ---
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 The patient was seen on morning rounds with her family present (son, daughter, granddaughter) and again this afternoon with her son and daughter present. She was found resting in bed comfortably on room air. She is more alert today and conversational. She has participated with physical therapy this morning; 2 slight steps with a slow and steady gait utilizing a front wheel walker and standby assist. The patient does complain of generalized discomfort and body aches; especially to her bilateral upper extremities, but does not specify a specific location or joint. She declines need for stronger pain medication. She is encouraged to talk with the nursing staff if she finds that her pain is uncontrolled. The patient denies headache, dizziness, chest pain, palpitations, dyspnea, orthopnea, abdominal pain, nausea, vomiting, and diarrhea. She has no new questions or concerns today. No concerns per nursing. Reason For Visit: ELEVATED TROPONIN,DEHYDRATION,FALL Physical Exam Vital Signs: Temp Pulse Resp BP Pulse Ox 98.6 F 72 16 149/53 H 97 08/10/18 11:38 08/10/18 15:59 08/10/18 15:59 08/10/18 15:59 08/10/18 15:59 Intake & Output 08/09/18 08/10/18 08/11/18 06:59 06:59 06:59 Intake Total 965 1508 Balance 965 1508 Weight 70.8 kg General appearance: PRESENT: no acute distress, well-developed, well-nourished - Overweight Head exam: PRESENT: normocephalic, other - Ecchymosis and hematoma to her right cheek Eye exam: PRESENT: conjunctiva pink, EOMI, PERRLA. ABSENT: scleral icterus Ear exam: PRESENT: normal external ear exam Mouth exam: PRESENT: moist, tongue midline Neck exam: ABSENT: carotid bruit, JVD, lymphadenopathy, thyromegaly Respiratory exam: PRESENT: clear to auscultation mildred, symmetrical, unlabored. ABSENT: rales, rhonchi, wheezes Cardiovascular exam: PRESENT: RRR, +S1, +S2, systolic murmur. ABSENT: diastolic murmur, rubs Pulses: PRESENT: normal dorsalis pedis pul Vascular exam: PRESENT: normal capillary refill GI/Abdominal exam: PRESENT: normal bowel sounds, soft. ABSENT: distended, guarding, mass, organolmegaly, rebound, tenderness Rectal exam: PRESENT: deferred Extremities exam: PRESENT: full ROM, tenderness - tenderness - Generalized; especially to bilateral knees and upper extremities. ABSENT: calf tenderness, clubbing, pedal edema Neurological exam: PRESENT: alert, awake, oriented to person, oriented to place , oriented to time, oriented to situation. ABSENT: CN II-XII grossly intact - The patient participates much more fully in exam today and it is now clear that she has left-sided weakness to her upper and lower extremity. Questionable right-sided facial droop; difficult to assess due to hematoma to her cheek, but it does appear that the right corner of her mouth is immobile, motor sensory deficit Psychiatric exam: PRESENT: appropriate affect, flat affect - Remains somewhat withdrawn, improved from yesterday. ABSENT: homicidal ideation, suicidal ideation Skin exam: PRESENT: dry, warm, other - Numerous ecchymosis and skin tears to extremities; abrasion to right cheek with periorbital edema, skin tears to bilateral upper extremities (no surrounding erythema or drainage), 2 cm round unstageable pressure wound to left knee with fluid-filled blister intact over wound, erythema and edema to bilateral knees. ABSENT: cyanosis, rash Results Laboratory Results: 08/10/18 07:43 08/10/18 07:43 08/10/18 08/10/18 08/10/18 07:43 07:43 07:43 WBC 11.3 H RBC 4.11 Hgb 12.3 D Hct 37.4 MCV 91 MCH 30.0 MCHC 32.9 RDW 15.0 H Plt Count 115 L Seg Neutrophils % 77.4 Lymphocytes % 13.5 Monocytes % 5.8 Eosinophils % 2.7 Basophils % 0.6 Absolute Neutrophils 8.8 H Absolute Lymphocytes 1.5 Absolute Monocytes 0.7 Absolute Eosinophils 0.3 Absolute Basophils 0.1 Sodium 134.8 L Potassium 3.8 Chloride 106 Carbon Dioxide 25 Anion Gap 4 L BUN 33 H Creatinine 0.86 Est GFR ( Amer) > 60 Est GFR (Non-Af Amer) > 60 Glucose 109 Calcium 8.4 Total Bilirubin 0.6 AST 39 H ALT 31 Alkaline Phosphatase 76 Total Protein 5.2 L Albumin 2.5 L Triglycerides 108 Cholesterol 126.84 LDL Cholesterol Direct 56 VLDL Cholesterol 22.0 HDL Cholesterol 51 TSH 4.65 08/09/18 08/09/18 08/10/18 19:35 19:35 01:22 Creatine Kinase 206 H 102 Troponin I 0.096 08/10/18 08/10/18 08/10/18 01:22 07:43 07:43 Creatine Kinase 100 Troponin I 0.094 0.099 Impressions: Knee X-Ray 08/09/18 00:00 IMPRESSION: Knee joint effusion. No acute fracture. Osteoarthritis patellofemoral and medial compartments Cervical Spine CT 08/09/18 10:22 IMPRESSION: No acute posttraumatic changes. Minimal degenerative change. Head CT 08/09/18 10:22 IMPRESSION: NO ACUTE INTRACRANIAL IMAGING FINDINGS. Mild mucosal thickening both maxillary sinuses. EVIDENCE OF ACUTE STROKE: NO. Chest X-Ray 08/09/18 10:23 IMPRESSION: NO ACUTE RADIOGRAPHIC FINDING IN THE CHEST. Carotid Doppler Study 08/10/18 00:00 IMPRESSION: NO HEMODYNAMICALLY SIGNIFICANT STENOSIS. Head MRI 08/10/18 11:06 IMPRESSION: Acute, nonhemorrhagic infarcts bilateral frontal lobe. EVIDENCE OF ACUTE STROKE: YES. Right anterior cerebral and left middle cerebral arteries. Assessment & Plan - Diagnosis (1) Acute ischemic cerebrovascular accident (CVA) involving anterior cerebral artery territory Is this a current diagnosis for this admission?: Yes Plan: The patient was admitted for generalized weakness, elevated troponin, and dehydration following a fall at home with prolonged downtime; patient was found approximately 4 days after her fall. Fortunately, the patient was non-rhabdomyolysis and her renal function was preserved. Initially, the patient's exam was unremarkable, other than poor patient participation and generalized weakness. Today, however, the patient was much more alert and noted to have clear left-sided weakness. On admission her EKG demonstrated normal sinus rhythm with a prolonged QT interval, chest x-ray was benign, cervical spine CT revealed chronic degenerative changes only, and head CT was notable for prominent ventricles secondary to involutional atrophy and mild mucosal thickening of both maxillary sinuses but no evidence of acute stroke. Head MRI today revealed a large right anterior cerebral artery territory infarct measuring 5.2 x 1.8 cm and a left MCA watershed infarct measuring 5 x 3 mm indicating probable embolic etiology or cardiac shunt. Carotid Doppler was negative for hemodynamically significant stenosis. Echocardiogram revealed normal LVEF with mild LVH. The mitral valve was thickened and calcified with reduced mobility and moderate to severe mitral stenosis. Moderate aortic incompetence was noted. TSH, lipid panel, A1c are all acceptable. The patient was upgraded to [facility] for acute stroke. Bedside swallow eval was normal; cardiac diet resumed. Continue aspirin. Atorvastatin was increased to 80 mg daily. Placed on Plavix 75 mg daily. PT/OT/ST consultations placed. MRI results were discussed with cardiology; recommended neurology be consulted for anticoagulation guidance. [facility] was contacted; spoke with Dr. Morales (Neurology). Dr Morales advised that in moderate to large ischemic stroke suspected to be embolic in nature chronic anticoagulation is held for 10-14 days to reduce risk of conversion to hemorrhagic CVA. He also recommends follow up MIKE. We will consult Dr. Andersen with acute rehabilitation at [facility]; if patient is appropriate for acute rehabilitation at their facility, will attempt to arrange inpatient transfer to [facility] to complete the MIKE with discharge to their inhouse rehab rather than have patient complete two separate trips. Patient and family were updated with MRI results; all questions were answered to their satisfaction. 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 (3) Elevated troponin Is this a current diagnosis for this admission?: Yes Plan: On admission, the patient was noted to have an elevated troponin to 0.117; peaked at 0.126 and now trended down to 0.99 CK is minimally elevated to 148; peaked at 206 and now normal. Renal function is acceptable. Myoglobin elevated to 469. Chest x-ray is benign. EKG reveals NSR with prolonged QTC. No acute changes/ST segment elevation or depression. TSH, lipid panel, A1c acceptable. Echocardiogram reveals severe valvular disease; cardiology recommends follow-up MIKE. The patient is admitted on continuous cardiac telemetry. She is placed on daily aspirin and high-dose statin therapy. Plavix initiated today secondary to acute CVA. Norvasc is held to allow permissive hypertension for CVA. Nitroglycerin SL tabs as needed for chest pain.nitro Cardiology consultation; Dr. Hough reports low suspicion for ACS. Believe the patient had a troponin leak secondary to hypotension at time of her fall. (4) Dehydration Is this a current diagnosis for this admission?: Yes Plan: Improved; creatinine and BUN trending down. Secondary to poor p.o. intake as a result of fall and immobility times 4 days. Evidenced by elevated hemoglobin, elevated BUN, mildly elevated creatinine. We will continue maintenance IV fluids. Encourage p.o. intake. Strict I&O's. Daily chemistry (5) HTN (hypertension) Is this a current diagnosis for this admission?: Yes Plan: Norvasc held; will allow permissive hypertension secondary to acute CVA. IV hydralazine as needed for blood pressure control. (6) Hypothyroid Is this a current diagnosis for this admission?: Yes Plan: TSH 4.65 Continue the patient's home dose of levothyroxine. (7) Leukocytosis Qualifiers: Leukocytosis type: unspecified Qualified Code(s): D72.829 - Elevated white blood cell count, unspecified Is this a current diagnosis for this admission?: Yes Plan: Trending down; likely inflammatory reaction related to acute CVA, fall, and prolonged downtime. Urinalysis is negative. CXR is benign. No indications for antibiotic therapy at this time. (8) Fall Qualifiers: Encounter type: initial encounter Qualified Code(s): W19.XXXA - Unspecified fall, initial encounter Is this a current diagnosis for this admission?: Yes Plan: The patient reports that she had a fall at home due to her knees giving out. The patient is typically independently ambulatory without assistive devices. Per family, the patient is able to climb a flight of stairs and completes her own grocery shopping while ambulatory. PT/OT evaluations. Fall precautions. Discharge planning is consulted; anticipate the patient will require rehab versus home health at discharge. (9) Left knee pain Qualifiers: Chronicity: acute Qualified Code(s): M25.562 - Pain in left knee Is this a current diagnosis for this admission?: Yes Plan: Patient's knee is noted to have a 2 cm unstageable pressure wound to her knee with medial erythema and generalized edema following a fall. Left knee x-ray reveals joint effusion, no acute fracture, osteoarthritis. Tylenol as needed for discomfort. Ice and repositioning for discomfort. - Time Time Spent with patient: 35 or more minutes Medications reviewed and adjusted accordingly: Yes Anticipated discharge: Acute Rehab Within: within 48 hours
[2018-08-10] MEDS: ACETAMINOPHEN 325 MG TABLET PO PRN (18:05)
[2018-08-10] MEDS: ATORVASTATIN CALCIUM 80 MG TABLET PO SCH (21:03)
[2018-08-11] MEDS: NORMAL SALINE 1000 ML 1,000 ML IV PRN ×3 (00:30→16:26)
[2018-08-11 05:27] LABS: HEMATOCRIT 35.1 % (36.0-47.0); MEAN CORPUSCULAR HEMOGLOBIN 31.1 pg (27.0-33.4); MEAN CORPUSCULAR HGB CONC 34.1 g/dL (32.0-36.0); MEAN CORPUSCULAR VOLUME 91 fl (80-97); RED BLOOD COUNT 3.85 10^6/uL (3.72-5.28); WHITE BLOOD COUNT 9.5 10^3/uL (4.0-10.5)
[2018-08-11 05:36] LABS: BLOOD UREA NITROGEN 24 mg/dL (7-20); CALCIUM 8.1 mg/dL (8.4-10.2); CHLORIDE 111 mmol/L (98-107); GLUCOSE 97 mg/dL (75-110); POTASSIUM 3.6 mmol/L (3.6-5.0)
[2018-08-11 05:42] LABS: CARBON DIOXIDE 23 mmol/L (22-30); SODIUM 138.3 mmol/L (137-145)
[2018-08-11] MEDS: HEPARIN SOD (PORCINE) 5,000 UNIT/ML 1 ML SYRINGE SUBCUT SCH ×3 (05:43→21:20)
[2018-08-11] MEDS: LEVOTHYROXINE SODIUM 0.1 MG TABLET PO SCH (05:43)
[2018-08-11 05:45] LABS: ANION GAP 4 (5-19)
[2018-08-11 05:47] LABS: PLATELET COUNT 89 10^3/uL (150-450)
[2018-08-11] MEDS: ALBUTEROL SULFATE 0.083% NEB 2.5 MG/3 ML AMPUL NEB PRN ×2 (10:32→18:18)
--- NOTE | 2018-08-11 11:52 | PDOC PROGRESS REPORT ---
Subjective Progress Note for:: 08/10/18 Subjective:: Patient seems to be doing better with gradual improvement. Pt is denying any chest arm or neck discomfort. Patient denying any PND, orthopnea. Patient denied any sustained palpitations, dizziness, syncope, near syncope. Patient denying any fever chills. Patient denying any other significant discomfort. Review of systems: Rest review of systems negative. Medications: Medications have been reviewed. Reason For Visit: ELEVATED TROPONIN,DEHYDRATION,FALL Physical Exam Vital Signs: Temp Pulse Resp BP Pulse Ox 98.6 F 72 16 149/53 H 97 08/10/18 11:38 08/10/18 15:59 08/10/18 15:59 08/10/18 15:59 08/10/18 15:59 Intake & Output 08/09/18 08/10/18 08/11/18 06:59 06:59 06:59 Intake Total 965 1508 Balance 965 1508 Weight 70.8 kg Exam: GENERAL: well-nourished and in no acute distress. Alert and oriented x2 HEAD: Atraumatic, normocephalic. EYES: Pupils equal round and reactive to light, extraocular movements intact, sclera anicteric, conjunctiva are normal. ENT: TMs normal, nares patent, oropharynx clear without exudates. Moist mucous membranes. No oral ulcerations or bleeding gums noted NECK: supple without lymphadenopathy. Trachea is central. No cervical or axillary lymphadenopathy noted. Carotids are 2+, JVD WNL LUNGS: Respiration seems nonlabored, no significant accessory muscle action noted. Breath sounds clear to auscultation bilaterally and equal noted. No wheezes rales or rhonchi noted. No significant dullness noted on percussion. CHEST: Palpation of the chest wall shows no significant chest wall tenderness. HEART: [place] [employer], No PSH, 1/6 HENRY aortic area, 1/6 farfan systolic murmur mitral area, no rubs, no gallops. ABDOMEN: Soft, no significant tenderness appreciated, normoactive bowel sounds. No guarding, no rebound. No rigidity noted . No masses appreciated. EXTREMITIES: Pedal pulses are 1-2+, no calf tenderness noted. No clubbing or cyanosis. negative pedal edema noted NEUROLOGICAL: Focused neurological exam showed his speech difficulty, flat affect, patient does not cooperate with neurologic testing. PSYCH: Not checked patient noted to have flat affect. SKIN: No significant ecchymosis, skin is noted to be warm. MUSCULOSKELETAL EXAM: No significant acute joint swelling noted. Results Laboratory Results: 08/10/18 07:43 08/10/18 07:43 08/10/18 08/10/18 08/10/18 07:43 07:43 07:43 WBC 11.3 H RBC 4.11 Hgb 12.3 D Hct 37.4 MCV 91 MCH 30.0 MCHC 32.9 RDW 15.0 H Plt Count 115 L Seg Neutrophils % 77.4 Lymphocytes % 13.5 Monocytes % 5.8 Eosinophils % 2.7 Basophils % 0.6 Absolute Neutrophils 8.8 H Absolute Lymphocytes 1.5 Absolute Monocytes 0.7 Absolute Eosinophils 0.3 Absolute Basophils 0.1 Sodium 134.8 L Potassium 3.8 Chloride 106 Carbon Dioxide 25 Anion Gap 4 L BUN 33 H Creatinine 0.86 Est GFR ( Amer) > 60 Est GFR (Non-Af Amer) > 60 Glucose 109 Calcium 8.4 Total Bilirubin 0.6 AST 39 H ALT 31 Alkaline Phosphatase 76 Total Protein 5.2 L Albumin 2.5 L Triglycerides 108 Cholesterol 126.84 LDL Cholesterol Direct 56 VLDL Cholesterol 22.0 HDL Cholesterol 51 TSH 4.65 08/09/18 08/09/18 08/10/18 19:35 19:35 01:22 Creatine Kinase 206 H 102 Troponin I 0.096 08/10/18 08/10/18 08/10/18 01:22 07:43 07:43 Creatine Kinase 100 Troponin I 0.094 0.099 EKG Comments: Shows sinus rhythm. No sustained tachycardia or bradycardia arrhythmia noted Impressions: Knee X-Ray 08/09/18 00:00 IMPRESSION: Knee joint effusion. No acute fracture. Osteoarthritis patellofemoral and medial compartments Cervical Spine CT 08/09/18 10:22 IMPRESSION: No acute posttraumatic changes. Minimal degenerative change. Head CT 08/09/18 10:22 IMPRESSION: NO ACUTE INTRACRANIAL IMAGING FINDINGS. Mild mucosal thickening both maxillary sinuses. EVIDENCE OF ACUTE STROKE: NO. Chest X-Ray 08/09/18 10:23 IMPRESSION: NO ACUTE RADIOGRAPHIC FINDING IN THE CHEST. Carotid Doppler Study 08/10/18 00:00 IMPRESSION: NO HEMODYNAMICALLY SIGNIFICANT STENOSIS. Head MRI 08/10/18 11:06 IMPRESSION: Acute, nonhemorrhagic infarcts bilateral frontal lobe. EVIDENCE OF ACUTE STROKE: YES. Right anterior cerebral and left middle cerebral arteries. Assessment & Plan - Diagnosis (1) Acute ischemic cerebrovascular accident (CVA) involving left middle cerebral artery territory Is this a current diagnosis for this admission?: Yes (2) Elevated troponin Is this a current diagnosis for this admission?: Yes (3) Fall Qualifiers: Encounter type: initial encounter Qualified Code(s): W19.XXXA - Unspecified fall, initial encounter Is this a current diagnosis for this admission?: Yes (4) HTN (hypertension) Qualifiers: Hypertension type: essential hypertension Qualified Code(s): I10 - Essential (primary) hypertension Is this a current diagnosis for this admission?: Yes (5) Mitral stenosis Qualifiers: Cardiac valve disease etiology: etiology unspecified Qualified Code(s): I05.0 - Rheumatic mitral stenosis Is this a current diagnosis for this admission?: Yes - Notes Notes: Patient noted to have stroke. Have recommended that we touch base with neurologist about the timing of anticoagulation. Patient has possible significant mitral stenosis but now with large stroke, would not be considered a candidate for open heart surgery. Mitral valvuloplasty also not a good option in view of calcified mitral valve. As regards anticoagulation, Coumadin is the FDA approved agent but due to patient's mobility problem, difficulty with monitoring, we may need to use an off label newer oral anticoagulant that may not need frequent monitoring. CVA cerebrovascular accident: [place] to be cardioembolic as carotid stenosis has been ruled out. Patient has mitral stenosis which is felt to be moderate to severe. Therefore patient at increased risk. Chronic anticoagulation is indicated but currently on hold due to large area of cerebrovascular accident and brain injury. Dehydration: Currently improving. Patient p.o. intake would need to be monitored. Hypertension: Blood pressure is adequately controlled. Would be liberal with blood pressure control in this lady with acute stroke. Mitral stenosis: Patient is noted to have moderate to severe mitral stenosis. Patient felt to be a poor candidate for any open heart surgery. At this point recommend medical management. Low threshold for amiodarone use if patient goes into atrial fibrillation. - Time Time with patient: Greater than 35 minutes - CODE STATUS was discussed, patient remains full code. Surrogate decision-maker unchanged. Multiple medical problems were addressed. More than 50% of the time spent coordinating care, discussing management plans with involved caregivers. Management plans discussed with involved personnels. Medical decision making was of moderate to high complexity, patient's has multiple comorbidities. Medications reviewed and adjusted accordingly: Yes
--- NOTE | 2018-08-11 12:57 | PDOC PROGRESS REPORT ---
Subjective Progress Note for:: 08/11/18 Subjective:: JESUS CLARK is a 88 year old female with a known past medical history of hypertension and hypothyroidism who was admitted 08/09/18 for elevated troponin , dehydration, and generalized weakness related to a fall at home resulting in 4 days on the floor prior to being discovered by her funder. The patient was seen on morning rounds with her son and daughter present. She was found resting in bed comfortably on room air; she is noted to have increased work of breathing but without adventitious lung sounds. She is more alert today and conversational, now with inflection to her voice and some sarcasm. She reports generalized discomfort, especially to her right upper extremity but denies specific joint tenderness. The patient denies headache, dizziness, chest pain, palpitations, dyspnea, orthopnea, abdominal pain, nausea, vomiting, and diarrhea. She has no new questions or concerns today. No concerns per nursing. Reason For Visit: ELEVATED TROPONIN,DEHYDRATION,FALL Physical Exam Vital Signs: Temp Pulse Resp BP Pulse Ox 99.0 F 69 18 146/49 H 95 08/11/18 07:54 08/11/18 08:00 08/11/18 08:00 08/11/18 08:00 08/11/18 08:00 Intake & Output 08/10/18 08/11/18 08/12/18 06:59 06:59 06:59 Intake Total 965 3455 1355 Balance 965 3455 1355 Weight 70.8 kg 79.6 kg General appearance: PRESENT: no acute distress, well-developed, well-nourished - Overweight Head exam: PRESENT: atraumatic, normocephalic Eye exam: PRESENT: conjunctiva pink, EOMI, PERRLA. ABSENT: scleral icterus Ear exam: PRESENT: normal external ear exam Mouth exam: PRESENT: moist, tongue midline Neck exam: ABSENT: carotid bruit, JVD, lymphadenopathy, thyromegaly Respiratory exam: PRESENT: clear to auscultation mildred, symmetrical, tachypnea. ABSENT: rales, rhonchi, wheezes Cardiovascular exam: PRESENT: RRR, +S1, +S2, systolic murmur. ABSENT: diastolic murmur, rubs Pulses: PRESENT: normal dorsalis pedis pul Vascular exam: PRESENT: normal capillary refill GI/Abdominal exam: PRESENT: normal bowel sounds, soft. ABSENT: distended, guarding, mass, organolmegaly, rebound, tenderness Rectal exam: PRESENT: deferred Extremities exam: PRESENT: full ROM. ABSENT: calf tenderness, clubbing, pedal edema Neurological exam: PRESENT: alert, awake, oriented to person, oriented to place , oriented to time, oriented to situation. 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 ABSENT: homicidal ideation, suicidal ideation Skin exam: PRESENT: dry, warm, other - Numerous ecchymosis and skin tears to extremities; abrasion to right cheek with periorbital edema, skin tears to bilateral upper extremities (no surrounding erythema or drainage), 2 cm round unstageable pressure wound to left knee with fluid-filled blister intact over wound, erythema and edema to bilateral knees. ABSENT: cyanosis, intact, rash Results Laboratory Results: 08/11/18 05:01 08/11/18 05:01 08/11/18 08/11/18 05:01 05:01 WBC 9.5 RBC 3.85 Hgb 12.0 Hct 35.1 L MCV 91 MCH 31.1 MCHC 34.1 RDW 15.0 H Plt Count 89 L Sodium 138.3 Potassium 3.6 Chloride 111 H Carbon Dioxide 23 Anion Gap 4 L BUN 24 H Creatinine 0.75 Est GFR ( Amer) > 60 Est GFR (Non-Af Amer) > 60 Glucose 97 Calcium 8.1 L 08/09/18 08/09/18 08/10/18 19:35 19:35 01:22 Creatine Kinase 206 H 102 Troponin I 0.096 08/10/18 08/10/18 08/10/18 01:22 07:43 07:43 Creatine Kinase 100 Troponin I 0.094 0.099 Impressions: Knee X-Ray 08/09/18 00:00 IMPRESSION: Knee joint effusion. No acute fracture. Osteoarthritis patellofemoral and medial compartments Cervical Spine CT 08/09/18 10:22 IMPRESSION: No acute posttraumatic changes. Minimal degenerative change. Head CT 08/09/18 10:22 IMPRESSION: NO ACUTE INTRACRANIAL IMAGING FINDINGS. Mild mucosal thickening both maxillary sinuses. EVIDENCE OF ACUTE STROKE: NO. Chest X-Ray 08/09/18 10:23 IMPRESSION: NO ACUTE RADIOGRAPHIC FINDING IN THE CHEST. Carotid Doppler Study 08/10/18 00:00 IMPRESSION: NO HEMODYNAMICALLY SIGNIFICANT STENOSIS. Head MRI 08/10/18 11:06 IMPRESSION: Acute, nonhemorrhagic infarcts bilateral frontal lobe. EVIDENCE OF ACUTE STROKE: YES. Right anterior cerebral and left middle cerebral arteries. Assessment & Plan - Diagnosis (1) Acute ischemic cerebrovascular accident (CVA) involving anterior cerebral artery territory Is this a current diagnosis for this admission?: Yes Plan: The patient was admitted for generalized weakness, elevated troponin, and dehydration following a fall at home with prolonged downtime; patient was found approximately 4 days after her fall. Fortunately, the patient was non-rhabdomyolysis and her renal function was preserved. Initially, the patient's exam was unremarkable, other than poor patient participation and generalized weakness. Today, however, the patient was much more alert and noted to have clear left-sided weakness. On admission her EKG demonstrated normal sinus rhythm with a prolonged QT interval, chest x-ray was benign, cervical spine CT revealed chronic degenerative changes only, and head CT was notable for prominent ventricles secondary to involutional atrophy and mild mucosal thickening of both maxillary sinuses but no evidence of acute stroke. Head MRI revealed a large right anterior cerebral artery territory infarct measuring 5.2 x 1.8 cm and a left MCA watershed infarct measuring 5 x 3 mm indicating probable embolic etiology or cardiac shunt. Carotid Doppler was negative for hemodynamically significant stenosis. Echocardiogram revealed normal LVEF with mild LVH. The mitral valve was thickened and calcified with reduced mobility and moderate to severe mitral stenosis. Moderate aortic incompetence was noted. TSH, lipid panel, A1c are all acceptable. The patient is admitted to [facility] for acute stroke. Bedside swallow eval was normal; cardiac diet resumed. Continue aspirin, Atorvastatin, 80 mg daily, and Plavix 75 mg daily. PT/OT/ST consultations placed. [facility] was contacted; spoke with Dr. Morales (Neurology). Dr Morales advised that in moderate to large ischemic stroke suspected to be embolic in nature chronic anticoagulation is held for 10-14 days to reduce risk of conversion to hemorrhagic CVA; at that time discontinue antiplatelet therapy. Will make arrangements to obtain MIKE prior to discharge; likely to SNF for short term rehab. 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 (3) Elevated troponin Is this a current diagnosis for this admission?: Yes Plan: On admission, the patient was noted to have an elevated troponin to 0.117; peaked at 0.126 and now trended down to 0.99 CK is minimally elevated to 148; peaked at 206 and now normal. Renal function is acceptable. Myoglobin elevated to 469. Chest x-ray is benign. EKG reveals NSR with prolonged QTC. No acute changes/ST segment elevation or depression. TSH, lipid panel, A1c acceptable. Echocardiogram reveals severe valvular disease; cardiology recommends follow-up MIKE. The patient is admitted on continuous cardiac telemetry. She is placed on daily aspirin and high-dose statin therapy. Plavix initiated yesterday secondary to acute CVA. Norvasc is held to allow permissive hypertension for CVA. Nitroglycerin SL tabs as needed for chest pain.nitro Cardiology consultation; Dr. Hough reports low suspicion for ACS. Believe the patient had a troponin leak secondary to hypotension at time of her fall. (4) Dehydration Is this a current diagnosis for this admission?: Yes Plan: Improved; creatinine has normalized and BUN trending down. Secondary to poor p.o. intake as a result of fall and immobility times 4 days. Evidenced by elevated hemoglobin, elevated BUN, mildly elevated creatinine. We will continue maintenance IV fluids. Encourage p.o. intake. Strict I&O's. Daily chemistry (5) HTN (hypertension) Is this a current diagnosis for this admission?: Yes Plan: Norvasc held; will allow permissive hypertension secondary to acute CVA. IV hydralazine as needed for blood pressure control. (6) Hypothyroid Is this a current diagnosis for this admission?: Yes Plan: TSH 4.65 Continue the patient's home dose of levothyroxine. (7) Leukocytosis Qualifiers: Leukocytosis type: unspecified Qualified Code(s): D72.829 - Elevated white blood cell count, unspecified Is this a current diagnosis for this admission?: Yes Plan: Resolved; likely inflammatory reaction related to acute CVA, fall, and prolonged downtime. Urinalysis is negative. CXR is benign. No indications for antibiotic therapy at this time. (8) Fall Qualifiers: Encounter type: initial encounter Qualified Code(s): W19.XXXA - Unspecified fall, initial encounter Is this a current diagnosis for this admission?: Yes Plan: The patient reports that she had a fall at home due to her knees giving out. The patient is typically independently ambulatory without assistive devices. Per family, the patient is able to climb a flight of stairs and completes her own grocery shopping while ambulatory. PT/OT evaluations. Fall precautions. Discharge planning is consulted; anticipate SNF for short term rehab. (9) Left knee pain Qualifiers: Chronicity: acute Qualified Code(s): M25.562 - Pain in left knee Is this a current diagnosis for this admission?: Yes Plan: Patient's knee is noted to have a 2 cm unstageable pressure wound to her knee with medial erythema and generalized edema following a fall. Left knee x-ray reveals joint effusion, no acute fracture, osteoarthritis. Tylenol as needed for discomfort. Ice and repositioning for discomfort. - Time Time Spent with patient: 25-34 minutes Medications reviewed and adjusted accordingly: Yes Anticipated discharge: SNF Within: Other - After obtaining MIKE
[2018-08-11] MEDS: ASPIRIN 81 MG TABLET, ENT COATED PO SCH (14:26)
[2018-08-11] MEDS: FAMOTIDINE 20 MG TABLET PO SCH ×2 (14:26→21:20)
[2018-08-11] MEDS: CLOPIDOGREL BISULFATE 75 MG TABLET PO SCH (14:26)
[2018-08-11] MEDS: DOCUSATE SODIUM 100 MG CAPSULE PO SCH ×2 (14:26→19:09)
[2018-08-11] MEDS: NEOMY/BACITRAC ZN/POLY OINT 15 GM TP SCH (18:00)
[2018-08-11] MEDS: ACETAMINOPHEN 325 MG TABLET PO PRN (18:40)
[2018-08-11] MEDS ORDERED: FUROSEMIDE INJ/PF 40 MG/4 ML SDV ONE (18:51)
--- NOTE | 2018-08-11 19:26 | RADIOLOGY REPORT (SQ) ---
EXAM DESCRIPTION: CHEST SINGLE VIEW COMPLETED DATE/TIME: 08/11/2018 7:16 pm REASON FOR STUDY: SOB COMPARISON: 08/09/2018 TECHNIQUE: Single frontal radiographic view of the chest acquired. NUMBER OF VIEWS: One view. LIMITATIONS: None. FINDINGS: LUNGS AND PLEURA: No pneumothorax. Mild bilateral basilar subsegmental atelectasis. No d ense consolidation. Probable trace left pleural effusion. MEDIASTINUM AND HILAR STRUCTURES: Stable. HEART AND VASCULAR STRUCTURES: Stable. BONES: No acute findings. HARDWARE: None in the chest. OTHER: No other significant finding. IMPRESSION: Mild bilateral basilar subsegmental atelectasis. No dense consolidation. Probable trac e left pleural effusion. TECHNICAL DOCUMENTATION: JOB ID: [id number] [place]-72 2010 [employer]- All Rights Reserved Reading location - IP/workstation name: [email or web address]
[2018-08-11] MEDS ORDERED: FUROSEMIDE INJ/PF 40 MG/4 ML SDV IV ONE (19:30)
[2018-08-11] MEDS: ATORVASTATIN CALCIUM 80 MG TABLET PO SCH (21:20)
[2018-08-12] MEDS: HEPARIN SOD (PORCINE) 5,000 UNIT/ML 1 ML SYRINGE SUBCUT SCH ×2 (05:04→14:50)
[2018-08-12] MEDS: LEVOTHYROXINE SODIUM 0.1 MG TABLET PO SCH (05:04)
[2018-08-12] MEDS: ASPIRIN 81 MG TABLET, ENT COATED PO SCH (10:49)
[2018-08-12] MEDS: CLOPIDOGREL BISULFATE 75 MG TABLET PO SCH (10:49)
[2018-08-12] MEDS: DOCUSATE SODIUM 100 MG CAPSULE PO SCH ×2 (10:49→18:09)
[2018-08-12] MEDS: NEOMY/BACITRAC ZN/POLY OINT 15 GM TP SCH ×2 (10:49→18:10)
[2018-08-12] MEDS: FAMOTIDINE 20 MG TABLET PO SCH ×2 (10:49→21:56)
[2018-08-12] MEDS: SILVER SULFADIAZINE 1% CREAM 25 GM TP SCH (12:07)
[2018-08-12] MEDS: CEPHALEXIN 500 MG CAPSULE PO SCH ×2 (12:21→18:09)
[2018-08-12] MEDS ORDERED: FUROSEMIDE INJ/PF 20 MG/2 ML SDV IV ONE (14:13)
--- NOTE | 2018-08-12 14:24 | PDOC PROGRESS REPORT ---
Subjective Progress Note for:: 08/12/18 Subjective:: JESUS CLARK is a 88 year old female with a known past medical history of hypertension and hypothyroidism who was admitted 08/09/18 for elevated troponin , dehydration, and generalized weakness related to a fall at home resulting in 4 days on the floor prior to being discovered by her tile mason. The patient was seen on morning rounds with her daughter present. She was found resting in bed comfortably on room air; she is noted slightly tachypneic but without adventitious lung sounds and denial of all respiratory symptoms. She is alert only to self this morning. She reports generalized discomfort, but is unable to localize pain. The patient denies headache, dizziness, chest pain, palpitations, dyspnea, orthopnea, cough, abdominal pain, nausea, vomiting, and diarrhea. She has no new questions or concerns today. No new questions or concerns per daughter. No concerns per nursing. Reason For Visit: ELEVATED TROPONIN,DEHYDRATION,FALL Physical Exam Vital Signs: Temp Pulse Resp BP Pulse Ox 98.3 F 66 24 H 154/54 H 99 08/12/18 12:00 08/12/18 12:00 08/12/18 12:00 08/12/18 12:00 08/12/18 12:00 Intake & Output 08/11/18 08/12/18 08/13/18 06:59 06:59 06:59 Intake Total 3455 4085 657 Balance 3455 4085 657 Weight 79.6 kg 81.1 kg General appearance: PRESENT: no acute distress, well-developed, well-nourished - Overweight Head exam: PRESENT: normocephalic, other - Abrasion and hematoma to right cheek ; wound was covered with a nonstick dressing, now appears to have sloughing with drainage. No surrounding erythema Eye exam: PRESENT: conjunctiva pink, EOMI, PERRLA. ABSENT: scleral icterus Ear exam: PRESENT: normal external ear exam Mouth exam: PRESENT: moist, tongue midline Neck exam: ABSENT: carotid bruit, JVD, lymphadenopathy, thyromegaly Respiratory exam: PRESENT: clear to auscultation mildred, tachypnea. ABSENT: rales , rhonchi, wheezes Cardiovascular exam: PRESENT: RRR, +S1, +S2, systolic murmur. ABSENT: diastolic murmur, rubs Pulses: PRESENT: normal dorsalis pedis pul Vascular exam: PRESENT: normal capillary refill GI/Abdominal exam: PRESENT: normal bowel sounds, soft. ABSENT: distended, guarding, mass, organolmegaly, rebound, tenderness Rectal exam: PRESENT: deferred Extremities exam: PRESENT: joint swelling - Bilateral knees, L>R, tenderness - RUE, other - Increased warmth to LUE; erythema w/ small clear-fluid filled bullae to the Lt AC, multiple skin tears and numerous echymosis to all extremities. 2 cm round unstageable pressure wound to left knee with fluid- filled blister intact over wound, no surrounding errythema or drainage present; knee remains edematous.. ABSENT: calf tenderness, clubbing, pedal edema Neurological exam: PRESENT: alert, awake, oriented to person, other - Left- sided weakness; improved left family coach strength today. Daughter reports that pt did lift her left arm this morning spontaneously. On exam, pt is unable to plantar/dorsiflex Lt foot, but does very briefly lift the leg off the bed ~ 1 cm. ABSENT: motor sensory deficit Psychiatric exam: PRESENT: appropriate affect, normal mood. ABSENT: homicidal ideation, suicidal ideation Skin exam: PRESENT: dry, warm, other - Numerous ecchymosis and skin tears to extremities; abrasion to right cheek with periorbital edema, skin tears to bilateral upper extremities. Skin tear to medial Lt wrist now with purulent drainage.. ABSENT: cyanosis, rash Results Laboratory Results: 08/11/18 05:01 08/11/18 05:01 08/09/18 08/09/18 08/10/18 19:35 19:35 01:22 Creatine Kinase 206 H 102 Troponin I 0.096 08/10/18 08/10/18 08/10/18 01:22 07:43 07:43 Creatine Kinase 100 Troponin I 0.094 0.099 Impressions: Knee X-Ray 08/09/18 00:00 IMPRESSION: Knee joint effusion. No acute fracture. Osteoarthritis patellofemoral and medial compartments Cervical Spine CT 08/09/18 10:22 IMPRESSION: No acute posttraumatic changes. Minimal degenerative change. Head CT 08/09/18 10:22 IMPRESSION: NO ACUTE INTRACRANIAL IMAGING FINDINGS. Mild mucosal thickening both maxillary sinuses. EVIDENCE OF ACUTE STROKE: NO. Carotid Doppler Study 08/10/18 00:00 IMPRESSION: NO HEMODYNAMICALLY SIGNIFICANT STENOSIS. Head MRI 08/10/18 11:06 IMPRESSION: Acute, nonhemorrhagic infarcts bilateral frontal lobe. EVIDENCE OF ACUTE STROKE: YES. Right anterior cerebral and left middle cerebral arteries. Chest X-Ray 08/11/18 18:51 IMPRESSION: Mild bilateral basilar subsegmental atelectasis. No dense consolidation. Probable trace left pleural effusion. Assessment & Plan - Diagnosis (1) Acute ischemic cerebrovascular accident (CVA) involving anterior cerebral artery territory Is this a current diagnosis for this admission?: Yes Plan: The patient was admitted for generalized weakness, elevated troponin, and dehydration following a fall at home with prolonged downtime; patient was found approximately 4 days after her fall. Fortunately, the patient was not in rhabdomyolysis and her renal function was preserved. Initially, the patient's exam was unremarkable, other than poor patient participation and generalized weakness. The following day, however, the patient was much more alert and noted to have clear left-sided weakness. On admission her EKG demonstrated normal sinus rhythm with a prolonged QT interval, chest x-ray was benign, cervical spine CT revealed chronic degenerative changes only, and head CT was notable for prominent ventricles secondary to involutional atrophy and mild mucosal thickening of both maxillary sinuses but no evidence of acute stroke. Head MRI revealed a large right anterior cerebral artery territory infarct measuring 5.2 x 1.8 cm and a left MCA watershed infarct measuring 5 x 3 mm indicating probable embolic etiology or cardiac shunt. Carotid Doppler was negative for hemodynamically significant stenosis. Echocardiogram revealed normal LVEF with mild LVH. The mitral valve was thickened and calcified with reduced mobility and moderate to severe mitral stenosis. Moderate aortic incompetence was noted. TSH, lipid panel, A1c are all acceptable. The patient is admitted to [facility] for acute stroke. Bedside swallow eval was normal; cardiac diet resumed. Continue aspirin, Atorvastatin, 80 mg daily. Will hold Plavix 75 mg secondary to thrombocytopenia (PLT 89) and evaluate cbc w/ diff. PT/OT/ST consultations placed. [facility] was contacted; spoke with Dr. Morales (Neurology). Dr Morales advised that in moderate to large ischemic stroke suspected to be embolic in nature chronic anticoagulation is held for 10-14 days to reduce risk of conversion to hemorrhagic CVA; at that time discontinue antiplatelet therapy. Will make arrangements to obtain MIKE prior to discharge; likely to SNF for short term rehab. 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 (3) Elevated troponin Is this a current diagnosis for this admission?: Yes Plan: On admission, the patient was noted to have an elevated troponin to 0.117; peaked at 0.126 and now trended down to 0.99 CK is minimally elevated to 148; peaked at 206 and now normal. Renal function is acceptable. Myoglobin elevated to 469. Chest x-ray is benign. EKG reveals NSR with prolonged QTC. No acute changes/ST segment elevation or depression. TSH, lipid panel, A1c acceptable. Echocardiogram reveals severe valvular disease; cardiology recommends follow-up MIKE. The patient is admitted on continuous cardiac telemetry. She is placed on daily aspirin and high-dose statin therapy. Norvasc is held to allow permissive hypertension for CVA. Nitroglycerin SL tabs as needed for chest pain.nitro Cardiology consultation; Dr. Hough reports low suspicion for ACS. Believe the patient had a troponin leak secondary to hypotension at time of her fall. (4) Dehydration Is this a current diagnosis for this admission?: Yes Plan: Improved; creatinine has normalized and BUN trending down. Secondary to poor p.o. intake as a result of fall and immobility times 4 days. Evidenced by elevated hemoglobin, elevated BUN, mildly elevated creatinine. Encourage p.o. intake. Strict I&O's. Daily chemistry (5) HTN (hypertension) Is this a current diagnosis for this admission?: Yes Plan: Norvasc held; will allow permissive hypertension secondary to acute CVA. Blood pressures are acceptable. IV hydralazine as needed for blood pressure control. (6) Hypothyroid Is this a current diagnosis for this admission?: Yes Plan: TSH 4.65 Continue the patient's home dose of levothyroxine. (7) Left knee pain Qualifiers: Chronicity: acute Qualified Code(s): M25.562 - Pain in left knee Is this a current diagnosis for this admission?: Yes Plan: Patient's left knee is noted to have a 2 cm unstageable pressure wound to her knee with medial erythema and generalized edema following a fall. Left knee x-ray reveals joint effusion, no acute fracture, osteoarthritis. Tylenol as needed for discomfort. Ice and repositioning for discomfort. Will ask Orthopedics to evaluate persistent edema w/ associated wound (8) Left arm cellulitis Is this a current diagnosis for this admission?: Yes Plan: The patient has numerous scattered ecchymosis and skin tears to all extremities. On exam today, her left upper extremity is noted to have a skin tear to the left medial wrist with purulent drainage, erythema with small fluid- filled vesicles to her AC, and increased warmth. WBCs are normal and the patient is afebrile. Will place on p.o. Keflex. (9) Fall Qualifiers: Encounter type: initial encounter Qualified Code(s): W19.XXXA - Unspecified fall, initial encounter Is this a current diagnosis for this admission?: Yes Plan: The patient reports that she had a fall at home due to her knees giving out; likely secondary to CVA. The patient is typically independently ambulatory without assistive devices. Per family, the patient is able to climb a flight of stairs and completes her own grocery shopping while ambulatory. PT/OT evaluations. Fall precautions. Discharge planning is consulted; anticipate SNF for short term rehab. (10) Leukocytosis Qualifiers: Leukocytosis type: unspecified Qualified Code(s): D72.829 - Elevated white blood cell count, unspecified Is this a current diagnosis for this admission?: Yes Plan: Resolved; likely inflammatory reaction related to acute CVA, fall, and prolonged downtime. Urinalysis is negative. CXR is benign. (11) Thrombocytopenia Is this a current diagnosis for this admission?: Yes Plan: On admission, Plt 175, though patient was clearly dehydrated at that time and so likely hemoconcentrated. She was provided IV fluids resuscitation; unfortunately strict urinary output was not monitored. Platelets of subsequently trended down to 89. IV fluids are discontinued; providing gentle IV diuresis with furosemide. We will hold Plavix and subcutaneous heparin. Continue daily aspirin. We will evaluate CBC with differential. (12) Tachypnea on examination Is this a current diagnosis for this admission?: Yes Plan: The patient is noted to be mildly tachypneic with a respiratory rate of 18-22. She has intermittent expiratory wheezing; difficult to tell if it is related to upper airway clearance as the wheezing is most easily heard on the upper anterior chest. She is afebrile. WBCs are normal. Patient denies all symptoms of dyspnea, orthopnea, cough. Chest x-ray revealed mild bilateral basilar subsegmental atelectasis with no dense consolidations and a probable trace left pleural effusion. IV fluids have been discontinued; gentle IV diuresis with furosemide. Scheduled and as needed nebulizers. Supplemental oxygen as needed to maintain oxygen saturations greater than 90%. - Time Time Spent with patient: 25-34 minutes Medications reviewed and adjusted accordingly: Yes Anticipated discharge: SNF Within: Other - Pending MIKE arrangements.
--- NOTE | 2018-08-12 18:40 | PDOC PROGRESS REPORT ---
Subjective Progress Note for:: 08/11/18 Subjective:: Patient seems to be doing better with slow gradual improvement. Pt is denying any chest arm or neck discomfort. Patient denying any PND, orthopnea. Patient denied any sustained palpitations, dizziness, syncope, near syncope. Patient denying any fever chills. Patient denying any other significant discomfort. Review of systems: Rest review of systems negative. Medications: Medications have been reviewed. Reason For Visit: ELEVATED TROPONIN,DEHYDRATION,FALL Physical Exam Vital Signs: Temp Pulse Resp BP Pulse Ox 98.3 F 71 24 H 144/45 H 95 08/12/18 15:27 08/12/18 15:27 08/12/18 15:27 08/12/18 15:27 08/12/18 15:27 Intake & Output 08/11/18 08/12/18 08/13/18 06:59 06:59 06:59 Intake Total 3455 4085 1094 Balance 3455 4085 1094 Weight 79.6 kg 81.1 kg Exam: GENERAL: well-nourished and in no acute distress. Alert and oriented x2 HEAD: Atraumatic, normocephalic. EYES: Pupils equal round and reactive to light, extraocular movements intact, sclera anicteric, conjunctiva are normal. ENT: TMs normal, nares patent, oropharynx clear without exudates. Moist mucous membranes. No oral ulcerations or bleeding gums noted NECK: supple without lymphadenopathy. Trachea is central. No cervical or axillary lymphadenopathy noted. Carotids are 2+, JVD WNL LUNGS: Respiration seems nonlabored, no significant accessory muscle action noted. Breath sounds clear to auscultation bilaterally and equal noted. No wheezes rales or rhonchi noted. No significant dullness noted on percussion. CHEST: Palpation of the chest wall shows no significant chest wall tenderness. 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 ABDOMEN: Soft, no significant tenderness appreciated, normoactive bowel sounds. No guarding, no rebound. No rigidity noted . No masses appreciated. EXTREMITIES: Pedal pulses are 1-2+, no calf tenderness noted. No clubbing or cyanosis. negative pedal edema noted NEUROLOGICAL: Focused neurological exam showed speech difficulty and flat affect. Full exam cannot be performed due to significant bodily discomfort. PSYCH: Normal mood, normal affect. Judgment and insight not checked SKIN: No significant ecchymosis, skin is noted to be warm. MUSCULOSKELETAL EXAM: No significant acute joint swelling noted. Results Laboratory Results: 08/11/18 05:01 08/11/18 05:01 08/09/18 08/09/18 08/10/18 19:35 19:35 01:22 Creatine Kinase 206 H 102 Troponin I 0.096 08/10/18 08/10/18 08/10/18 01:22 07:43 07:43 Creatine Kinase 100 Troponin I 0.094 0.099 EKG Comments: Shows sinus rhythm. No sustained tachycardia or bradycardia arrhythmias noted. Impressions: Knee X-Ray 08/09/18 00:00 IMPRESSION: Knee joint effusion. No acute fracture. Osteoarthritis patellofemoral and medial compartments Cervical Spine CT 08/09/18 10:22 IMPRESSION: No acute posttraumatic changes. Minimal degenerative change. Head CT 08/09/18 10:22 IMPRESSION: NO ACUTE INTRACRANIAL IMAGING FINDINGS. Mild mucosal thickening both maxillary sinuses. EVIDENCE OF ACUTE STROKE: NO. Carotid Doppler Study 08/10/18 00:00 IMPRESSION: NO HEMODYNAMICALLY SIGNIFICANT STENOSIS. Head MRI 08/10/18 11:06 IMPRESSION: Acute, nonhemorrhagic infarcts bilateral frontal lobe. EVIDENCE OF ACUTE STROKE: YES. Right anterior cerebral and left middle cerebral arteries. Chest X-Ray 08/11/18 18:51 IMPRESSION: Mild bilateral basilar subsegmental atelectasis. No dense consolidation. Probable trace left pleural effusion. 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: Yes - Notes Notes: CVA cerebrovascular accident: [place] to be cardioembolic as carotid stenosis has been ruled out. Patient has mitral stenosis which is felt to be moderate to severe. Therefore patient at increased risk. Chronic anticoagulation is indicated but currently on hold due to large area of cerebrovascular accident and brain injury. Non-STEMI: [place] to be type II. Could well now in retrospect be related to coronary vasospasm from cerebrovascular accident. History of fall, most likely related to CVA. Dehydration: Currently improving. Patient p.o. intake would need to be monitored. Hypertension: Blood pressure is adequately controlled. Would be liberal with blood pressure control in this lady with acute stroke. Mitral stenosis: Patient is noted to have moderate to severe mitral stenosis. Patient felt to be a poor candidate for any open heart surgery. At this point recommend medical management. Low threshold for amiodarone use if patient goes into atrial fibrillation. - Time Time with patient: Greater than 35 minutes - CODE STATUS was discussed, patient remains full code. Surrogate decision-maker unchanged. Multiple medical problems were addressed. More than 50% of the time spent coordinating care, discussing management plans with involved caregivers. Management plans discussed with involved personnels. Medical decision making was of moderate to high complexity, patient's has multiple comorbidities. Medications reviewed and adjusted accordingly: Yes
[2018-08-12] MEDS: ACETAMINOPHEN 325 MG TABLET PO PRN (18:45)
--- NOTE | 2018-08-12 19:16 | PDOC PROGRESS REPORT ---
Subjective Progress Note for:: 08/12/18 Subjective:: Patient still has significant difficulty with speech and mobility. However, Patient seems to be doing better with slow gradual improvement. Pt is denying any chest arm or neck discomfort. Patient denying any PND, orthopnea. Patient denied any sustained palpitations, dizziness, syncope, near syncope. Patient denying any fever chills. Patient denying any other significant discomfort. Review of systems: Rest review of systems negative. Medications: Medications have been reviewed. Reason For Visit: ELEVATED TROPONIN,DEHYDRATION,FALL Physical Exam Vital Signs: Temp Pulse Resp BP Pulse Ox 98.3 F 71 24 H 144/45 H 95 08/12/18 15:27 08/12/18 15:27 08/12/18 15:27 08/12/18 15:27 08/12/18 15:27 Intake & Output 08/11/18 08/12/18 08/13/18 06:59 06:59 06:59 Intake Total 3455 4085 1094 Balance 3455 4085 1094 Weight 79.6 kg 81.1 kg Exam: GENERAL: well-nourished and in no acute distress. Patient is alert but orientation not checked. HEAD: Atraumatic, normocephalic. EYES: Pupils equal round and reactive to light, extraocular movements intact, sclera anicteric, conjunctiva are normal. ENT: TMs normal, nares patent, oropharynx clear without exudates. Moist mucous membranes. No oral ulcerations or bleeding gums noted NECK: supple without lymphadenopathy or JVD. Trachea is central. No cervical or axillary lymphadenopathy noted. Carotids are 2+ LUNGS: Breath sounds bibasilar fine crackles at bases. No significant dullness noted. CHEST: Palpation of chest wall shows no significant chest wall tenderness. 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 ABDOMEN: Soft, no significant tenderness appreciated, normoactive bowel sounds. No guarding, no rebound. No rigidity noted . No masses appreciated. EXTREMITIES: Pedal pulses are 1-2+, no calf tenderness noted, Trace + pedal edema noted. No clubbing or cyanosis. NEUROLOGICAL: Patient is alert but is not able to willing to participate in neurologic exam. PSYCH: Patient cannot participate in a neurologic and psych exam because of the patient's current mental status SKIN: No significant ecchymosis, rash, ulcerations or signs of pruritus noted. MUSCULOSKELETAL EXAM: No significant joint swelling noted. Results Laboratory Results: 08/11/18 05:01 08/11/18 05:01 08/09/18 08/09/18 08/10/18 19:35 19:35 01:22 Creatine Kinase 206 H 102 Troponin I 0.096 08/10/18 08/10/18 08/10/18 01:22 07:43 07:43 Creatine Kinase 100 Troponin I 0.094 0.099 EKG Comments: Shows sinus rhythm, no sustained tachyarrhythmia or bradyarrhythmias noted. Impressions: Knee X-Ray 08/09/18 00:00 IMPRESSION: Knee joint effusion. No acute fracture. Osteoarthritis patellofemoral and medial compartments Cervical Spine CT 08/09/18 10:22 IMPRESSION: No acute posttraumatic changes. Minimal degenerative change. Head CT 08/09/18 10:22 IMPRESSION: NO ACUTE INTRACRANIAL IMAGING FINDINGS. Mild mucosal thickening both maxillary sinuses. EVIDENCE OF ACUTE STROKE: NO. Carotid Doppler Study 08/10/18 00:00 IMPRESSION: NO HEMODYNAMICALLY SIGNIFICANT STENOSIS. Head MRI 08/10/18 11:06 IMPRESSION: Acute, nonhemorrhagic infarcts bilateral frontal lobe. EVIDENCE OF ACUTE STROKE: YES. Right anterior cerebral and left middle cerebral arteries. Chest X-Ray 08/11/18 18:51 IMPRESSION: Mild bilateral basilar subsegmental atelectasis. No dense consolidation. Probable trace left pleural effusion. 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: Yes - Notes Notes: Patient is making very slow progress. Patient daughter told that patient would not be considered candidate for mitral valve replacement and repair not feasible and heavily calcified leaflet and annulus. They prefer medical management. Patient would need to go to a rehab facility. If patient condition significantly improves then further cardiovascular workup can be initiated at that time. CVA cerebrovascular accident: [place] to be cardioembolic as carotid stenosis has been ruled out. Patient has mitral stenosis which is felt to be moderate to severe. Therefore patient at increased risk. Chronic anticoagulation is indicated but currently on hold due to large area of cerebrovascular accident and brain injury. Non-STEMI: [place] to be type II. Could well now in retrospect be related to coronary vasospasm from cerebrovascular accident. History of fall, most likely related to CVA. Dehydration: Currently improving. Patient p.o. intake would need to be monitored. Hypertension: Blood pressure is adequately controlled. Would be liberal with blood pressure control in this lady with acute stroke. Mitral stenosis: Patient is noted to have moderate to severe mitral stenosis. Patient felt to be a poor candidate for any open heart surgery. At this point recommend medical management. Low threshold for amiodarone use if patient goes into atrial fibrillation. - Time Time with patient: 15-25 minutes - CODE STATUS was discussed, patient remains full code. Surrogate decision-maker unchanged. Multiple medical problems were addressed. More than 50% of the time spent coordinating care, discussing management plans with involved caregivers. Management plans discussed with involved personnels. Medical decision making was of moderate to high complexity , patient's has multiple comorbidities. Medications reviewed and adjusted accordingly: Yes
[2018-08-12] MEDS: IPRATROPIUM/ALBUTEROL 0.5-2.5 MG/3 ML AMPUL NEB SCH (20:11)
[2018-08-12] MEDS: ATORVASTATIN CALCIUM 80 MG TABLET PO SCH (21:55)
[2018-08-13] MEDS: CEPHALEXIN 500 MG CAPSULE PO SCH ×5 (00:18→23:25)
[2018-08-13 05:28] LABS: ABSOLUTE BASOPHILS # (AUTO) 0.1 10^3/uL (0.0-0.2); ABSOLUTE EOSINOPHILS # (AUTO) 0.5 10^3/uL (0.0-0.6); ABSOLUTE MONOCYTES (AUTO) 0.8 10^3/uL (0.1-1.4); ABSOLUTE NEUT (AUTO) 7.5 10^3/uL (1.7-8.2); BASOPHILS % (AUTO) 0.7 % (0-2); EOSINOPHILS % (AUTO) 4.6 % (0-6); HEMATOCRIT 36.5 % (36.0-47.0); HEMOGLOBIN 12.2 g/dL (12.0-15.5); LYMPHOCYTES % (AUTO) 18.4 % (13-45); MEAN CORPUSCULAR HEMOGLOBIN 30.6 pg (27.0-33.4); MEAN CORPUSCULAR HGB CONC 33.5 g/dL (32.0-36.0); MEAN CORPUSCULAR VOLUME 91 fl (80-97); MONOCYTES % (AUTO) 7.3 % (3-13); PLATELET COUNT 104 10^3/uL (150-450); RED BLOOD COUNT 3.99 10^6/uL (3.72-5.28); RED CELL DISTRIBUTION WIDTH 14.9 % (11.5-14.0); TOTAL CELLS COUNTED % (AUTO) 100 %; WHITE BLOOD COUNT 10.8 10^3/uL (4.0-10.5)
[2018-08-13 05:44] LABS: ANION GAP 5 (5-19); BLOOD UREA NITROGEN 23 mg/dL (7-20); CALCIUM 8.7 mg/dL (8.4-10.2); CARBON DIOXIDE 28 mmol/L (22-30); CHLORIDE 106 mmol/L (98-107); GLUCOSE 107 mg/dL (75-110); POTASSIUM 3.9 mmol/L (3.6-5.0); SODIUM 138.8 mmol/L (137-145)
[2018-08-13] MEDS: LEVOTHYROXINE SODIUM 0.1 MG TABLET PO SCH (06:05)
[2018-08-13] MEDS ORDERED: FUROSEMIDE 20 MG TABLET PO ONE ×2 (07:45→10:30)
[2018-08-13] MEDS: IPRATROPIUM/ALBUTEROL 0.5-2.5 MG/3 ML AMPUL NEB SCH ×2 (08:19→19:55)
[2018-08-13] MEDS ORDERED: FUROSEMIDE 40 MG TABLET ONE (10:00)
[2018-08-13] MEDS: DOCUSATE SODIUM 100 MG CAPSULE PO SCH ×2 (10:12→18:09)
[2018-08-13] MEDS: FAMOTIDINE 20 MG TABLET PO SCH ×2 (10:12→22:07)
[2018-08-13] MEDS: ASPIRIN 81 MG TABLET, ENT COATED PO SCH (10:12)
[2018-08-13] MEDS: CLOPIDOGREL BISULFATE 75 MG TABLET PO SCH (10:12)
[2018-08-13] MEDS: SILVER SULFADIAZINE 1% CREAM 25 GM TP SCH (10:13)
[2018-08-13] MEDS: NEOMY/BACITRAC ZN/POLY OINT 15 GM TP SCH ×2 (10:13→18:09)
--- NOTE | 2018-08-13 12:28 | PDOC CONSULTATION ---
Consultation Consult Date: 08/12/18 Consult reason:: Left knee pain with effusion and abrasions History of Present Illness Admission Date/PCP: 08/09/18 15:44 RICHI BRAY MD History of Present Illness: JESUS CLARK is a 88 year old female status post mechanical fall onto her left knee causing some superficial scrapes and lesions on the knee with a significant pain and effusion. Orthopedic consulted to make sure that the abrasions are superficial and to evaluate for the effusion and pain of her left knee. Patient admitted for other medical reasons. Patient complains of left knee pain and swelling and pain with range of motion. Denies any numbness or tingling or paresthesias or any deformity. She did have some occasional pain prior to the fall but currently has an acute pain in the left knee since the fall. Denies any weight loss or weight gain or cold intolerance or any other systemic. Only musculoskeletal complaint is of the left knee. Past Medical History Cardiac Medical History: Reports: Hypertension Denies: Coronary Artery Disease, Myocardial Infarction, Hyperlipidema Pulmonary Medical History: Reports: None EENT Medical History: Reports: None Neurological Medical History: Reports: None Endocrine Medical History: Reports: Hypothyroidism Denies: Diabetes Mellitus Type 2 Renal/ Medical History: Reports: None GI Medical History: Reports: None Musculoskeltal Medical History: Reports: Arthritis Skin Medical History: Reports: None Psychiatric Medical History: Reports: None Denies: Depression Traumatic Medical History: Reports: None Hematology: Reports: None Infectious Medical History: Reports: None Past Surgical History Past Surgical History: Reports: Cholecystectomy, Hysterectomy, Orthopedic Surgery - Rt shoulder Social History Lives with: Alone Smoking Status: Former Smoker Frequency of Alcohol Use: None Hx Recreational Drug Use: No Drugs: None Hx Prescription Drug Abuse: No - Advance Directive Resuscitation Status: Full Code Family History Family History: Hypertension Parental Family History Reviewed: No Children Family History Reviewed: No Sibling(s) Family History Reviewed.: No Medication/Allergy Home Medications: Amlodipine Besylate [Norvasc 5 mg Tablet] 5 mg PO QHS 08/09/18 Aspirin [Aspirin EC] 81 mg PO DAILY 08/09/18 Hydroxyzine HCl [Hydroxyzine HCl] 25 mg PO HSP PRN 08/09/18 Levothyroxine Sodium [Synthroid 0.1 mg Tablet] 0.1 mg PO Q6AM 08/09/18 Allergies/Adverse Reactions: No Known Allergies Allergy (Verified 08/09/18 11:03) Review of Systems Review of Systems: Constitutional: [PRESENT: as per HPI. ABSENT: chills, fever(s), headache(s), weight gain, weight loss] Eyes: [ABSENT: visual disturbances] Ears: [ABSENT: hearing changes] Cardiovascular: [ABSENT: chest pain, dyspnea on exertion, edema, orthropnea, palpitations] Respiratory: [ABSENT: cough, hemoptysis] Gastrointestinal: [ABSENT: abdominal pain, constipation, diarrhea, hematemesis, hematochezia, nausea, vomiting] Genitourinary: [ABSENT: dysuria, hematuria] Musculoskeletal: As per HPI Integumentary: [ABSENT: rash, wounds] Neurological: [ABSENT: abnormal gait, abnormal speech, confusion, dizziness, focal weakness, syncope] Psychiatric: [ABSENT: anxiety, depression, homicidal ideation, suicidal ideation ] Endocrine: [ABSENT: cold intolerance, heat intolerance, menstrual abnormalities , polydipsia, polyuria] Hematologic/Lymphatic: [ABSENT: easy bleeding, easy bruising, lymphadenopathy] Physical Exam Vital Signs: Temp Pulse Resp BP Pulse Ox 37.1 C 66 16 153/50 H 92 08/13/18 07:39 08/13/18 08:21 08/13/18 08:21 08/13/18 07:39 08/13/18 08:21 Intake & Output 08/12/18 08/13/18 08/14/18 06:59 06:59 06:59 Intake Total 4085 1094 177 Balance 4085 1094 177 Weight 81.1 kg 77.7 kg General appearance: PRESENT: no acute distress, well-nourished Head exam: PRESENT: normocephalic, other - Ecchymosis and abrasions on the right side of her face from the mechanical fall. Eye exam: PRESENT: EOMI. ABSENT: conjunctival injection, nystagmus Ear exam: PRESENT: normal external ear exam Mouth exam: PRESENT: neck supple Neck exam: ABSENT: lymphadenopathy, tenderness, thyromegaly Respiratory exam: PRESENT: symmetrical, unlabored. ABSENT: accessory muscle use , tachypnea Cardiovascular exam: PRESENT: RRR Pulses: PRESENT: normal dorsalis pedis pul Vascular exam: PRESENT: normal capillary refill GI/Abdominal exam: PRESENT: soft. ABSENT: organolmegaly, tenderness Neurological exam: PRESENT: alert, awake, oriented to person, oriented to place , oriented to time, oriented to situation Psychiatric exam: PRESENT: appropriate affect, normal mood Skin exam: PRESENT: abrasion, normal color, skin tears. ABSENT: erythema Adult Front & Back Image: 1 - Left knee pain with range of motion. +2 effusion. 2 superficial abrasions on the tibia just inferior to the knee and the patella. No erythema or drainage. Neurovascular intact distally. Soft calf with negative Rosina Results Laboratory Results: 08/13/18 04:34 08/13/18 04:34 08/13/18 08/13/18 04:34 04:34 WBC 10.8 H RBC 3.99 Hgb 12.2 Hct 36.5 MCV 91 MCH 30.6 MCHC 33.5 RDW 14.9 H Plt Count 104 L Seg Neutrophils % 69.0 Lymphocytes % 18.4 Monocytes % 7.3 Eosinophils % 4.6 Basophils % 0.7 Absolute Neutrophils 7.5 Absolute Lymphocytes 2.0 Absolute Monocytes 0.8 Absolute Eosinophils 0.5 Absolute Basophils 0.1 Sodium 138.8 Potassium 3.9 Chloride 106 Carbon Dioxide 28 Anion Gap 5 BUN 23 H Creatinine 0.95 Est GFR ( Amer) > 60 Est GFR (Non-Af Amer) 56 L Glucose 107 Calcium 8.7 08/09/18 08/09/18 08/10/18 19:35 19:35 01:22 Creatine Kinase 206 H 102 Troponin I 0.096 NT-Pro-B Natriuret Pep 08/10/18 08/10/18 08/10/18 01:22 07:43 07:43 Creatine Kinase 100 Troponin I 0.094 0.099 NT-Pro-B Natriuret Pep 08/13/18 04:34 Creatine Kinase Troponin I NT-Pro-B Natriuret Pep 1220 H Impressions: Knee X-Ray 08/09/18 00:00 IMPRESSION: Knee joint effusion. No acute fracture. Osteoarthritis patellofemoral and medial compartments Cervical Spine CT 08/09/18 10:22 IMPRESSION: No acute posttraumatic changes. Minimal degenerative change. Head CT 08/09/18 10:22 IMPRESSION: NO ACUTE INTRACRANIAL IMAGING FINDINGS. Mild mucosal thickening both maxillary sinuses. EVIDENCE OF ACUTE STROKE: NO. Carotid Doppler Study 08/10/18 00:00 IMPRESSION: NO HEMODYNAMICALLY SIGNIFICANT STENOSIS. Head MRI 08/10/18 11:06 IMPRESSION: Acute, nonhemorrhagic infarcts bilateral frontal lobe. EVIDENCE OF ACUTE STROKE: YES. Right anterior cerebral and left middle cerebral arteries. Chest X-Ray 08/11/18 18:51 IMPRESSION: Mild bilateral basilar subsegmental atelectasis. No dense consolidation. Probable trace left pleural effusion. Status: Image reviewed by me Assessment & Plan - Diagnosis (1) Effusion of left knee joint Is this a current diagnosis for this admission?: Yes (2) Primary osteoarthritis of left knee Is this a current diagnosis for this admission?: Yes - Plan Summary Plan Summary: 88-year-old female with mechanical fall onto the left knee. The abrasions are superficial with no erythema or concerns of involving the joint. X-rays of the knee showing primary osteoarthritis with her age. Currently she has other medical issues being addressed. We will recommend just pain control and follow- up as an outpatient. Discussed with him potential aspiration and cortisone injection as an outpatient when she addresses her medical issues.
[2018-08-13] MEDS: HEPARIN SOD (PORCINE) 5,000 UNIT/ML 1 ML SYRINGE SUBCUT SCH ×2 (14:27→22:04)
--- NOTE | 2018-08-13 14:56 | PDOC PROGRESS REPORT ---
Subjective Progress Note for:: 08/13/18 Subjective:: Patient still has significant difficulty with speech and mobility. However, Patient seems to be doing better with slow gradual improvement. Patient today has better his speech capabilities and also is noted to be writing few words on the notepad. Pt is denying any chest arm or neck discomfort. Patient denying any PND, orthopnea. Patient denied any sustained palpitations, dizziness, syncope, near syncope. Patient denying any fever chills. Patient denying any other significant discomfort. Review of systems: Rest review of systems negative. Medications: Medications have been reviewed. Reason For Visit: ELEVATED TROPONIN,DEHYDRATION,FALL Physical Exam Vital Signs: Temp Pulse Resp BP Pulse Ox 97.8 F 73 20 133/46 H 93 08/13/18 12:10 08/13/18 12:10 08/13/18 12:10 08/13/18 12:10 08/13/18 12:10 Intake & Output 08/12/18 08/13/18 08/14/18 06:59 06:59 06:59 Intake Total 4085 1094 177 Balance 4085 1094 177 Weight 81.1 kg 77.7 kg Exam: GENERAL: well-nourished and in no acute distress. Today patient noted to be alert and oriented x3 HEAD: Atraumatic, normocephalic. EYES: Pupils equal round and reactive to light, extraocular movements intact, sclera anicteric, conjunctiva are normal. ENT: TMs normal, nares patent, oropharynx clear without exudates. Moist mucous membranes. No oral ulcerations or bleeding gums noted NECK: supple without lymphadenopathy. Trachea is central. No cervical or axillary lymphadenopathy noted. Carotids are 2+, JVD WNL LUNGS: Respiration seems nonlabored, no significant accessory muscle action noted. Breath sounds clear to auscultation bilaterally and equal noted. No wheezes rales or rhonchi noted. No significant dullness noted on percussion. CHEST: Palpation of the chest wall shows no significant chest wall tenderness. HEART: [place] QUALITY NURSE, No PSH, 1/6 HENRY aortic area, 1/6 farfan systolic murmur mitral area, no rubs, no gallops. ABDOMEN: Soft, no significant tenderness appreciated, normoactive bowel sounds. No guarding, no rebound. No rigidity noted . No masses appreciated. EXTREMITIES: Pedal pulses are 1-2+, no calf tenderness noted. No clubbing or cyanosis. negative pedal edema noted NEUROLOGICAL: Focused neurological exam showed mild left-sided weakness. Patient's speech and mentation significantly improved. PSYCH: Normal mood, normal affect. Judgment and insight within normal limits. SKIN: No significant ecchymosis, skin is noted to be warm. MUSCULOSKELETAL EXAM: No significant acute joint swelling noted. Results Laboratory Results: 08/13/18 04:34 08/13/18 04:34 08/13/18 08/13/18 04:34 04:34 WBC 10.8 H RBC 3.99 Hgb 12.2 Hct 36.5 MCV 91 MCH 30.6 MCHC 33.5 RDW 14.9 H Plt Count 104 L Seg Neutrophils % 69.0 Lymphocytes % 18.4 Monocytes % 7.3 Eosinophils % 4.6 Basophils % 0.7 Absolute Neutrophils 7.5 Absolute Lymphocytes 2.0 Absolute Monocytes 0.8 Absolute Eosinophils 0.5 Absolute Basophils 0.1 Sodium 138.8 Potassium 3.9 Chloride 106 Carbon Dioxide 28 Anion Gap 5 BUN 23 H Creatinine 0.95 Est GFR ( Amer) > 60 Est GFR (Non-Af Amer) 56 L Glucose 107 Calcium 8.7 08/09/18 08/09/18 08/10/18 19:35 19:35 01:22 Creatine Kinase 206 H 102 Troponin I 0.096 NT-Pro-B Natriuret Pep 08/10/18 08/10/18 08/10/18 01:22 07:43 07:43 Creatine Kinase 100 Troponin I 0.094 0.099 NT-Pro-B Natriuret Pep 08/13/18 04:34 Creatine Kinase Troponin I NT-Pro-B Natriuret Pep 1220 H EKG Comments: Patient noted to be maintaining sinus rhythm. Impressions: Knee X-Ray 08/09/18 00:00 IMPRESSION: Knee joint effusion. No acute fracture. Osteoarthritis patellofemoral and medial compartments Cervical Spine CT 08/09/18 10:22 IMPRESSION: No acute posttraumatic changes. Minimal degenerative change. Head CT 08/09/18 10:22 IMPRESSION: NO ACUTE INTRACRANIAL IMAGING FINDINGS. Mild mucosal thickening both maxillary sinuses. EVIDENCE OF ACUTE STROKE: NO. Carotid Doppler Study 08/10/18 00:00 IMPRESSION: NO HEMODYNAMICALLY SIGNIFICANT STENOSIS. Head MRI 08/10/18 11:06 IMPRESSION: Acute, nonhemorrhagic infarcts bilateral frontal lobe. EVIDENCE OF ACUTE STROKE: YES. Right anterior cerebral and left middle cerebral arteries. Chest X-Ray 08/11/18 18:51 IMPRESSION: Mild bilateral basilar subsegmental atelectasis. No dense consolidation. Probable trace left pleural effusion. 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: Yes - Notes Notes: Patient noted to be making very satisfactory progress. As regards mitral stenosis, right now they prefer medical management. Patient would need to go to a rehab facility. If patient condition significantly improves then further cardiovascular workup can be initiated at that time. CVA cerebrovascular accident: [place] to be cardioembolic as carotid stenosis has been ruled out. Patient has mitral stenosis which is felt to be moderate to severe. Therefore patient at increased risk. Chronic anticoagulation is indicated but currently on hold due to large area of cerebrovascular accident and brain injury. Non-STEMI: [place] to be type II. Could well now in retrospect be related to coronary vasospasm from cerebrovascular accident. No ischemia workup is being planned. History of fall, most likely related to CVA. Dehydration: Currently improving. Patient p.o. intake would need to be monitored. Hypertension: Blood pressure is adequately controlled. Would be liberal with blood pressure control in this lady with acute stroke. Mitral stenosis: Patient is noted to have moderate to severe mitral stenosis. Patient felt to be a poor candidate for any open heart surgery. At this point recommend medical management. Low threshold for amiodarone use if patient goes into atrial fibrillation. - Time Time with patient: 15-25 minutes - CODE STATUS was discussed, patient remains full code. Surrogate decision-maker unchanged. Multiple medical problems were addressed. More than 50% of the time spent coordinating care, discussing management plans with involved caregivers. Management plans discussed with involved personnels. Medical decision making was of moderate to high complexity , patient's has multiple comorbidities. Medications reviewed and adjusted accordingly: Yes
--- NOTE | 2018-08-13 16:39 | PDOC PROGRESS REPORT ---
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 The patient was seen on morning rounds very briefly with her daughter present; she was seen again this afternoon for her assessment. She was found resting in bed comfortably on room air. She is alert and oriented to self and family, but does not answer the remainder of the orientation questions. She again reports generalized discomfort, but is unable to localize pain. The patient denies headache, dizziness, chest pain, palpitations, dyspnea, orthopnea, cough, abdominal pain, nausea, vomiting, and diarrhea. She has no new questions or concerns today. No new questions or concerns per daughter. No concerns per nursing. Reason For Visit: ELEVATED TROPONIN,DEHYDRATION,FALL Physical Exam Vital Signs: Temp Pulse Resp BP Pulse Ox 99.6 F 72 20 143/39 H 96 08/13/18 15:14 08/13/18 15:14 08/13/18 15:14 08/13/18 15:14 08/13/18 15:14 Intake & Output 08/12/18 08/13/18 08/14/18 06:59 06:59 06:59 Intake Total 4085 1094 177 Balance 4085 1094 177 Weight 81.1 kg 77.7 kg General appearance: PRESENT: no acute distress, well-developed, well-nourished - Overweight Head exam: PRESENT: normocephalic, other - Abrasion to right cheek; hematoma is decreased. Overall appearance slightly improved Eye exam: PRESENT: conjunctiva pink, EOMI, PERRLA. ABSENT: scleral icterus Ear exam: PRESENT: normal external ear exam Mouth exam: PRESENT: moist, tongue midline Neck exam: ABSENT: carotid bruit, JVD, lymphadenopathy, thyromegaly Respiratory exam: PRESENT: clear to auscultation mildred, symmetrical, wheezes - Slight expiratory wheeze left lower lobe. ABSENT: rales, rhonchi Cardiovascular exam: PRESENT: RRR, systolic murmur. ABSENT: diastolic murmur, rubs Pulses: PRESENT: normal dorsalis pedis pul Vascular exam: PRESENT: normal capillary refill GI/Abdominal exam: PRESENT: normal bowel sounds, soft. ABSENT: distended, guarding, mass, organolmegaly, rebound, tenderness Rectal exam: PRESENT: deferred Extremities exam: PRESENT: joint swelling - Bilateral knees, L>R, tenderness - RUE, other - Increased warmth to LUE; erythema w/ small clear-fluid filled bullae to the Lt AC, multiple skin tears and numerous echymosis to all extremities. 2 cm round unstageable pressure wound to left knee with fluid- filled blister intact over wound, no surrounding errythema or drainage present; knee remains edematous, tenderness. ABSENT: calf tenderness, clubbing, pedal edema Neurological exam: PRESENT: alert, awake, oriented to person. ABSENT: CN II- XII grossly intact - Left-sided weakness; slight plantar flexion of the left foot. No noted movement or crew person to left hand. (+) facial droop, motor sensory deficit Psychiatric exam: PRESENT: appropriate affect, normal mood. ABSENT: homicidal ideation, suicidal ideation Skin exam: PRESENT: dry, warm. ABSENT: cyanosis, intact - Numerous ecchymosis and skin tears to extremities; abrasion to right cheek with periorbital edema, skin tears to bilateral upper extremities. Skin tear to medial Lt wrist now with purulent drainage, rash Results Laboratory Results: 08/13/18 04:34 08/13/18 04:34 08/13/18 08/13/18 04:34 04:34 WBC 10.8 H RBC 3.99 Hgb 12.2 Hct 36.5 MCV 91 MCH 30.6 MCHC 33.5 RDW 14.9 H Plt Count 104 L Seg Neutrophils % 69.0 Lymphocytes % 18.4 Monocytes % 7.3 Eosinophils % 4.6 Basophils % 0.7 Absolute Neutrophils 7.5 Absolute Lymphocytes 2.0 Absolute Monocytes 0.8 Absolute Eosinophils 0.5 Absolute Basophils 0.1 Sodium 138.8 Potassium 3.9 Chloride 106 Carbon Dioxide 28 Anion Gap 5 BUN 23 H Creatinine 0.95 Est GFR ( Amer) > 60 Est GFR (Non-Af Amer) 56 L Glucose 107 Calcium 8.7 08/09/18 08/09/18 08/10/18 19:35 19:35 01:22 Creatine Kinase 206 H 102 Troponin I 0.096 NT-Pro-B Natriuret Pep 08/10/18 08/10/1818 01:22 07:43 07:43 Creatine Kinase 100 Troponin I 0.094 0.099 NT-Pro-B Natriuret Pep 08/13/18 04:34 Creatine Kinase Troponin I NT-Pro-B Natriuret Pep 1220 H Impressions: Knee X-Ray 08/09/18 00:00 IMPRESSION: Knee joint effusion. No acute fracture. Osteoarthritis patellofemoral and medial compartments Cervical Spine CT 08/09/18 10:22 IMPRESSION: No acute posttraumatic changes. Minimal degenerative change. Head CT 08/09/18 10:22 IMPRESSION: NO ACUTE INTRACRANIAL IMAGING FINDINGS. Mild mucosal thickening both maxillary sinuses. EVIDENCE OF ACUTE STROKE: NO. Carotid Doppler Study 08/10/18 00:00 IMPRESSION: NO HEMODYNAMICALLY SIGNIFICANT STENOSIS. Head MRI 08/10/18 11:06 IMPRESSION: Acute, nonhemorrhagic infarcts bilateral frontal lobe. EVIDENCE OF ACUTE STROKE: YES. Right anterior cerebral and left middle cerebral arteries. Chest X-Ray 08/11/18 18:51 IMPRESSION: Mild bilateral basilar subsegmental atelectasis. No dense consolidation. Probable trace left pleural effusion. Assessment & Plan - Diagnosis (1) Acute ischemic cerebrovascular accident (CVA) involving anterior cerebral artery territory Is this a current diagnosis for this admission?: Yes Plan: The patient was admitted for generalized weakness, elevated troponin, and dehydration following a fall at home with prolonged downtime; patient was found approximately 4 days after her fall. Fortunately, the patient was not in rhabdomyolysis and her renal function was preserved. Initially, the patient's exam was unremarkable, other than poor patient participation and generalized weakness. The following day, however, the patient was much more alert and noted to have clear left-sided weakness. On admission her EKG demonstrated normal sinus rhythm with a prolonged QT interval, chest x-ray was benign, cervical spine CT revealed chronic degenerative changes only, and head CT was notable for prominent ventricles secondary to involutional atrophy and mild mucosal thickening of both maxillary sinuses but no evidence of acute stroke. Head MRI revealed a large right anterior cerebral artery territory infarct measuring 5.2 x 1.8 cm and a left MCA watershed infarct measuring 5 x 3 mm indicating probable embolic etiology or cardiac shunt. Carotid Doppler was negative for hemodynamically significant stenosis. Echocardiogram revealed normal LVEF with mild LVH. The mitral valve was thickened and calcified with reduced mobility and moderate to severe mitral stenosis. Moderate aortic incompetence was noted. TSH, lipid panel, A1c are all acceptable. The patient is admitted to [facility] for acute stroke. Bedside swallow eval was normal; cardiac diet resumed. Continue aspirin, Atorvastatin, 80 mg, and Plavix 75 mg daily. PT/OT/ST consultations placed. [facility] was contacted; spoke with Dr. Morales (Neurology). Dr Morales advised that in moderate to large ischemic stroke suspected to be embolic in nature chronic anticoagulation is held for 10-14 days to reduce risk of conversion to hemorrhagic CVA; at that time discontinue antiplatelet therapy. Will make arrangements to obtain [facility] prior to discharge; will contact [facility] again tomorrow. Will require SNF for short term rehab at discharge; discharge planning is consulted. 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 (3) Elevated troponin Is this a current diagnosis for this admission?: Yes Plan: Type II NSTEMI. On admission, the patient was noted to have an elevated troponin to 0.117; peaked at 0.126 and now trended down to 0.99 CK is minimally elevated to 148; peaked at 206 and now normal. Renal function is acceptable. Myoglobin elevated to 469. Chest x-ray is benign. EKG reveals NSR with prolonged QTC. No acute changes/ST segment elevation or depression. TSH, lipid panel, A1c acceptable. Echocardiogram reveals severe valvular disease; cardiology recommends follow-up MIKE. The patient is admitted on continuous cardiac telemetry. She is placed on daily aspirin and high-dose statin therapy. Norvasc is held to allow permissive hypertension for CVA. Nitroglycerin SL tabs as needed for chest pain.nitro Cardiology consultation; Dr. Hough reports low suspicion for ACS. Believe the patient had a troponin leak secondary to hypotension at time of her fall. (4) Dehydration Is this a current diagnosis for this admission?: Yes Plan: Improved; creatinine has normalized and BUN trending down. Secondary to poor p.o. intake as a result of fall and immobility x 4 days. Evidenced by elevated hemoglobin, elevated BUN, mildly elevated creatinine. Encourage p.o. intake. Strict I&O's. Daily chemistry (5) HTN (hypertension) Qualifiers: Hypertension type: essential hypertension Qualified Code(s): I10 - Essential (primary) hypertension Is this a current diagnosis for this admission?: Yes Plan: Norvasc held; will allow permissive hypertension secondary to acute CVA. Blood pressures are acceptable. IV hydralazine as needed for blood pressure control. (6) Hypothyroid Is this a current diagnosis for this admission?: Yes Plan: TSH 4.65 Continue the patient's home dose of levothyroxine. (7) Left knee pain Qualifiers: Chronicity: acute Qualified Code(s): M25.562 - Pain in left knee Is this a current diagnosis for this admission?: Yes Plan: Patient's left knee is noted to have a 2 cm unstageable pressure wound to her knee with medial erythema and generalized edema following a fall. Left knee x-ray reveals joint effusion, no acute fracture, osteoarthritis. Tylenol as needed for discomfort. Ice and repositioning for discomfort. Orthopedics evaluated the knee; fortunately finds the wound to be superficial. Patient may follow-up as an outpatient for persistent edema or pain. (8) Left arm cellulitis Is this a current diagnosis for this admission?: Yes Plan: Improved appearance today. TMax last 48 hours is 100.3. WBC 10.8 The patient has numerous scattered ecchymosis and skin tears to all extremities. On exam today, her left upper extremity is noted to have a skin tear to the left medial wrist with purulent drainage, erythema with small fluid- filled vesicles to her AC, and increased warmth. WBCs are normal and the patient is afebrile. Continue p.o. Keflex. (9) Fall Qualifiers: Encounter type: initial encounter Qualified Code(s): W19.XXXA - Unspecified fall, initial encounter Is this a current diagnosis for this admission?: Yes Plan: The patient reports that she had a fall at home due to her knees giving out; likely secondary to CVA. The patient is typically independently ambulatory without assistive devices. Per family, the patient is able to climb a flight of stairs and completes her own grocery shopping while ambulatory. PT/OT evaluations. Fall precautions. Discharge planning is consulted; anticipate SNF for short term rehab. (10) Leukocytosis Qualifiers: Leukocytosis type: unspecified Qualified Code(s): D72.829 - Elevated white blood cell count, unspecified Is this a current diagnosis for this admission?: Yes Plan: Resolved; likely inflammatory reaction related to acute CVA, fall, and prolonged downtime. Urinalysis is negative. CXR is benign. (11) Thrombocytopenia Is this a current diagnosis for this admission?: Yes Plan: Slight improvement today; 176--> 115--> 89--> 104 Platelets of subsequently trended down to 89; possible due to IV fluid resuscitation (patient received ~7 L IVF over a 3 day period) IV fluids are discontinued; providing gentle IV diuresis with furosemide due to fluid volume overload. Will continue to monitor closely; no evidence of bleeding. We will evaluate CBC with differential. (12) Tachypnea on examination Is this a current diagnosis for this admission?: Yes Plan: Resolved. Tachypnea has resolved; she is noted to have a slight end expiratory wheeze to the left lower lobe. She is afebrile. WBCs are normal. Patient denies all symptoms of dyspnea, orthopnea, cough. Chest x-ray revealed mild bilateral basilar subsegmental atelectasis with no dense consolidations and a probable trace left pleural effusion. IV fluids have been discontinued; gentle IV diuresis with furosemide. Scheduled and as needed nebulizers. Supplemental oxygen as needed to maintain oxygen saturations greater than 90% Incentive spirometer to bedside. Encourage mobility.. - Time Time Spent with patient: 15-24 minutes Medications reviewed and adjusted accordingly: Yes Anticipated discharge: SNF Within: within 48 hours
[2018-08-13] MEDS: ATORVASTATIN CALCIUM 80 MG TABLET PO SCH (22:05)
[2018-08-14] MEDS: LEVOTHYROXINE SODIUM 0.1 MG TABLET PO SCH (05:31)
[2018-08-14] MEDS: CEPHALEXIN 500 MG CAPSULE PO SCH ×4 (05:31→23:59)
[2018-08-14] MEDS: HEPARIN SOD (PORCINE) 5,000 UNIT/ML 1 ML SYRINGE SUBCUT SCH ×3 (05:32→21:31)
[2018-08-14] MEDS: IPRATROPIUM/ALBUTEROL 0.5-2.5 MG/3 ML AMPUL NEB SCH ×2 (08:12→20:00)
[2018-08-14] MEDS: CLOPIDOGREL BISULFATE 75 MG TABLET PO SCH (09:55)
[2018-08-14] MEDS: NEOMY/BACITRAC ZN/POLY OINT 15 GM TP SCH ×2 (09:55→18:00)
[2018-08-14] MEDS: ASPIRIN 81 MG TABLET, ENT COATED PO SCH (09:55)
[2018-08-14] MEDS: FAMOTIDINE 20 MG TABLET PO SCH ×2 (09:55→21:31)
[2018-08-14] MEDS: DOCUSATE SODIUM 100 MG CAPSULE PO SCH ×2 (09:55→18:22)
[2018-08-14] MEDS: SILVER SULFADIAZINE 1% CREAM 25 GM TP SCH (09:56)
--- NOTE | 2018-08-14 12:54 | PDOC PROGRESS REPORT ---
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 The patient was seen on morning rounds with her son present. She was found resting in bed comfortably on room air. She was smiling and interacting with her son when I entered the room. She is noted to be holding a hand-held mirror with her left hand. She is alert and oriented to self, family, and place today. She recalls her fall but seems a little bit confused when I mention her stroke. Overall, her mental status appears slightly improved from yesterday. She again reports generalized discomfort, primarily to her upper extremities. She denies specific joint discomfort. The patient denies headache, dizziness, chest pain, palpitations, dyspnea, orthopnea, cough, abdominal pain, nausea, vomiting, and diarrhea. She has no new questions or concerns today. No new questions or concerns per daughter. No concerns per nursing. Reason For Visit: ELEVATED TROPONIN,DEHYDRATION,FALL Physical Exam Vital Signs: Temp Pulse Resp BP Pulse Ox 98.1 F 75 18 147/43 H 93 08/14/18 11:50 08/14/18 11:50 08/14/18 11:50 08/14/18 11:50 08/14/18 11:50 Intake & Output 08/13/18 08/14/18 08/15/18 06:59 06:59 06:59 Intake Total 1094 779 Balance 1094 779 Weight 77.7 kg 84.3 kg General appearance: PRESENT: no acute distress, well-developed, well-nourished - Overweight Head exam: PRESENT: normocephalic, other - Abrasion to right cheek; hematoma appears to have resolved. Eye exam: PRESENT: conjunctiva pink, EOMI, PERRLA. ABSENT: scleral icterus Ear exam: PRESENT: normal external ear exam Mouth exam: PRESENT: moist, tongue midline Neck exam: ABSENT: carotid bruit, JVD, lymphadenopathy, thyromegaly Respiratory exam: PRESENT: clear to auscultation mildred, symmetrical, unlabored. ABSENT: rales, rhonchi, wheezes Cardiovascular exam: PRESENT: RRR, systolic murmur. ABSENT: diastolic murmur, rubs Pulses: PRESENT: normal dorsalis pedis pul Vascular exam: PRESENT: normal capillary refill GI/Abdominal exam: PRESENT: normal bowel sounds, soft. ABSENT: distended, guarding, mass, organolmegaly, rebound, tenderness Rectal exam: PRESENT: deferred Extremities exam: PRESENT: joint swelling - Left knee; improving. Edema to right knee appears to have resolved., other. ABSENT: calf tenderness, clubbing , pedal edema Neurological exam: PRESENT: alert, awake, oriented to person, oriented to place. ABSENT: CN II-XII grossly intact - Left-sided weakness; increased left upper extremity strength., motor sensory deficit Psychiatric exam: PRESENT: flat affect, normal mood. ABSENT: homicidal ideation , suicidal ideation Skin exam: PRESENT: dry, erythema - Left upper extremity; improved from yesterday, warm, other - LUE erythema; improved from yesterday. Multiple skin tears and numerous echymosis to all extremities. 2 cm round unstageable pressure wound to left knee with fluid-filled blister intact over wound, no surrounding errythema or drainage present. Overall, skin tears and wounds appear to be healing well.. ABSENT: cyanosis, intact, rash Results Laboratory Results: 08/13/18 04:34 08/13/18 04:34 08/09/18 08/09/18 08/10/18 19:35 19:35 01:22 Creatine Kinase 206 H 102 Troponin I 0.096 NT-Pro-B Natriuret Pep 08/10/18 08/10/18 08/10/18 01:22 07:43 07:43 Creatine Kinase 100 Troponin I 0.094 0.099 NT-Pro-B Natriuret Pep 08/13/18 04:34 Creatine Kinase Troponin I NT-Pro-B Natriuret Pep 1220 H Impressions: Knee X-Ray 08/09/18 00:00 IMPRESSION: Knee joint effusion. No acute fracture. Osteoarthritis patellofemoral and medial compartments Cervical Spine CT 08/09/18 10:22 IMPRESSION: No acute posttraumatic changes. Minimal degenerative change. Head CT 08/09/18 10:22 IMPRESSION: NO ACUTE INTRACRANIAL IMAGING FINDINGS. Mild mucosal thickening both maxillary sinuses. EVIDENCE OF ACUTE STROKE: NO. Carotid Doppler Study 08/10/18 00:00 IMPRESSION: NO HEMODYNAMICALLY SIGNIFICANT STENOSIS. Head MRI 08/10/18 11:06 IMPRESSION: Acute, nonhemorrhagic infarcts bilateral frontal lobe. EVIDENCE OF ACUTE STROKE: YES. Right anterior cerebral and left middle cerebral arteries. Chest X-Ray 08/11/18 18:51 IMPRESSION: Mild bilateral basilar subsegmental atelectasis. No dense consolidation. Probable trace left pleural effusion. Assessment & Plan - Diagnosis (1) Acute ischemic cerebrovascular accident (CVA) involving anterior cerebral artery territory Is this a current diagnosis for this admission?: Yes Plan: The patient was admitted for generalized weakness, elevated troponin, and dehydration following a fall at home with prolonged downtime; patient was found approximately 4 days after her fall. Fortunately, the patient was not in rhabdomyolysis and her renal function was preserved. Initially, the patient's exam was unremarkable, other than poor patient participation and generalized weakness. The following day, however, the patient was much more alert and noted to have clear left-sided weakness. On admission her EKG demonstrated normal sinus rhythm with a prolonged QT interval, chest x-ray was benign, cervical spine CT revealed chronic degenerative changes only, and head CT was notable for prominent ventricles secondary to involutional atrophy and mild mucosal thickening of both maxillary sinuses but no evidence of acute stroke. Head MRI revealed a large right anterior cerebral artery territory infarct measuring 5.2 x 1.8 cm and a left MCA watershed infarct measuring 5 x 3 mm indicating probable embolic etiology or cardiac shunt. Carotid Doppler was negative for hemodynamically significant stenosis. Echocardiogram revealed normal LVEF with mild LVH. The mitral valve was thickened and calcified with reduced mobility and moderate to severe mitral stenosis. Moderate aortic incompetence was noted. TSH, lipid panel, A1c are all acceptable. MIKE is scheduled at [facility] for Tuesday morning; must arrive by 8:30. Nursing and discharge planning are aware to the transportation arrangements can be made. The patient is admitted to [facility] for acute stroke. Bedside swallow eval was normal; cardiac diet resumed. Continue aspirin, Atorvastatin, 80 mg, and Plavix 75 mg daily. PT/OT/ST consultations placed. [facility] was contacted; spoke with Dr. Morales (Neurology). Dr Morales advised that in moderate to large ischemic stroke suspected to be embolic in nature chronic anticoagulation is held for 10-14 days to reduce risk of conversion to hemorrhagic CVA; at that time discontinue antiplatelet therapy. Will require SNF for short term rehab at discharge; discharge planning is consulted. Anticipate patient will be stable for discharge to SNF for continued physical therapy upon completion of MIKE. Recommendations are to stop ASA and begin Coumadin therapy on 08/23/18; family is still discussing, have not given final authorization. 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 (3) Elevated troponin Is this a current diagnosis for this admission?: Yes Plan: Type II NSTEMI. On admission, the patient was noted to have an elevated troponin to 0.117; peaked at 0.126 and now trended down to 0.99 CK is minimally elevated to 148; peaked at 206 and now normal. Renal function is acceptable. Myoglobin elevated to 469. Chest x-ray is benign. EKG reveals NSR with prolonged QTC. No acute changes/ST segment elevation or depression. TSH, lipid panel, A1c acceptable. Echocardiogram reveals severe valvular disease; cardiology recommends follow-up MIKE. The patient is admitted on continuous cardiac telemetry. She is placed on daily aspirin and high-dose statin therapy. Norvasc is held to allow permissive hypertension for CVA; patient's blood pressures remain acceptable, no indication to resume medication. Cardiology consultation; Dr. Hough reports low suspicion for ACS. Believe the patient had a troponin leak secondary to hypotension at time of her fall. (4) Dehydration Is this a current diagnosis for this admission?: Yes Plan: Resolved. Creatinine has normalized and BUN trending down. Secondary to poor p.o. intake as a result of fall and immobility x 4 days. Evidenced by elevated hemoglobin, elevated BUN, mildly elevated creatinine. Encourage p.o. intake. Strict I&O's. Daily chemistry (5) HTN (hypertension) Qualifiers: Hypertension type: essential hypertension Qualified Code(s): I10 - Essential (primary) hypertension Is this a current diagnosis for this admission?: Yes Plan: Norvasc held; will allow permissive hypertension secondary to acute CVA. Blood pressures are acceptable, no indication to resume medication. IV hydralazine as needed for blood pressure control. (6) Hypothyroid Is this a current diagnosis for this admission?: Yes Plan: TSH 4.65 Continue the patient's home dose of levothyroxine. (7) Left knee pain Qualifiers: Chronicity: acute Qualified Code(s): M25.562 - Pain in left knee Is this a current diagnosis for this admission?: Yes Plan: Patient's left knee is noted to have a 2 cm unstageable pressure wound to her knee with medial erythema and generalized edema following a fall. Left knee x-ray reveals joint effusion, no acute fracture, osteoarthritis. Tylenol as needed for discomfort. Ice and repositioning for discomfort. Orthopedics evaluated the knee; fortunately finds the wound to be superficial. Patient may follow-up as an outpatient for persistent edema or pain. (8) Left arm cellulitis Is this a current diagnosis for this admission?: Yes Plan: Continued improvement; vesicles have resolved, erythema is significantly improved. TMax last 48 hours is 99.6. WBC 10.8 The patient has numerous scattered ecchymosis and skin tears to all extremities. On exam yesterday, her left upper extremity is noted to have a skin tear to the left medial wrist with purulent drainage, erythema with small fluid-filled vesicles to her AC, and increased warmth. Continue p.o. Keflex. (9) Fall Qualifiers: Encounter type: initial encounter Qualified Code(s): W19.XXXA - Unspecified fall, initial encounter Is this a current diagnosis for this admission?: Yes Plan: The patient reports that she had a fall at home due to her knees giving out; likely secondary to CVA. The patient is typically independently ambulatory without assistive devices. Per family, the patient is able to climb a flight of stairs and completes her own grocery shopping while ambulatory. PT/OT evaluations. Fall precautions. Discharge planning is consulted; anticipate SNF for short term rehab. (10) Leukocytosis Qualifiers: Leukocytosis type: unspecified Qualified Code(s): D72.829 - Elevated white blood cell count, unspecified Is this a current diagnosis for this admission?: Yes Plan: Initially was likely inflammatory reaction related to acute CVA, fall, and prolonged downtime. Recurrence is related to cellulitis. Urinalysis is negative. CXR is benign. Antibiotics as above. (11) Thrombocytopenia Is this a current diagnosis for this admission?: Yes Plan: Slight improvement today; 176--> 115--> 89--> 104 Platelets of subsequently trended down to 89; possible due to IV fluid resuscitation (patient received ~7 L IVF over a 3 day period) IV fluids are discontinued; providing gentle IV diuresis with furosemide due to fluid volume overload. Will continue to monitor closely; no evidence of bleeding. We will evaluate CBC with differential. (12) Tachypnea on examination Is this a current diagnosis for this admission?: Yes Plan: Resolved. Tachypnea and wheezing is resolved; maintaining oxygen saturations on room air. She is afebrile. WBCs are normal. Patient denies all symptoms of dyspnea, orthopnea, cough. Chest x-ray revealed mild bilateral basilar subsegmental atelectasis with no dense consolidations and a probable trace left pleural effusion. IV fluids have been discontinued; gentle IV diuresis with furosemide. Scheduled and as needed nebulizers. Supplemental oxygen as needed to maintain oxygen saturations greater than 90% Incentive spirometer to bedside. Encourage mobility. - Time Time Spent with patient: 15-24 minutes Medications reviewed and adjusted accordingly: Yes Anticipated discharge: SNF Within: within 72 hours - MIKE scheduled for Tuesday at [facility]. Anticipate d/c to SNF same or next day.
--- NOTE | 2018-08-14 19:56 | PDOC PROGRESS REPORT ---
Subjective Progress Note for:: 08/14/18 Subjective:: Patient seems to be doing better with slow gradual improvement. Patient noted to be reading and writing. Patient speech is also much improved. She is also noted to have more strength in the left-sided extremities. Pt is denying any chest arm or neck discomfort. Patient denying any PND, orthopnea. Patient denied any sustained palpitations, dizziness, syncope, near syncope. Patient denying any other significant discomfort. Review of systems: Rest review of systems negative. Medications: Medications have been reviewed. Reason For Visit: ELEVATED TROPONIN,DEHYDRATION,FALL Physical Exam Vital Signs: Temp Pulse Resp BP Pulse Ox 97.7 F 85 20 155/60 H 98 08/14/18 18:26 08/14/18 18:26 08/14/18 18:26 08/14/18 18:26 08/14/18 15:52 Intake & Output 08/13/18 08/14/18 08/15/18 06:59 06:59 06:59 Intake Total 6854 002 7075 Balance 4813 069 2292 Weight 77.7 kg 84.3 kg Exam: GENERAL: well-nourished and in no acute distress. Alert and oriented x3 HEAD: Atraumatic, normocephalic. EYES: Pupils equal round and reactive to light, extraocular movements intact, sclera anicteric, conjunctiva are normal. ENT: TMs normal, nares patent, oropharynx clear without exudates. Moist mucous membranes. No oral ulcerations or bleeding gums noted NECK: supple without lymphadenopathy. Trachea is central. No cervical or axillary lymphadenopathy noted. Carotids are 2+, JVD WNL LUNGS: Respiration seems nonlabored, no significant accessory muscle action noted. Breath sounds clear to auscultation bilaterally and equal noted. No wheezes rales or rhonchi noted. No significant dullness noted on percussion. CHEST: Palpation of the chest wall shows no significant chest wall tenderness. HEART: [place] [employer], No PSH, 2/6 HENRY aortic area, 1/6 farfan systolic murmur mitral area, no rubs, no gallops. ABDOMEN: Soft, no significant tenderness appreciated, normoactive bowel sounds. No guarding, no rebound. No rigidity noted . No masses appreciated. EXTREMITIES: Pedal pulses are 1-2+, no calf tenderness noted. No clubbing or cyanosis. negative pedal edema noted NEUROLOGICAL: Focused neurological exam showed no significant neurologic deficit. Normal speech, mild left-sided weakness noted PSYCH: Normal mood, normal affect. Judgment and insight within normal limits. SKIN: No significant ecchymosis, skin is noted to be warm. MUSCULOSKELETAL EXAM: No significant acute joint swelling noted. Results Laboratory Results: 08/13/18 04:34 08/13/18 04:34 08/09/18 08/09/18 08/10/18 19:35 19:35 01:22 Creatine Kinase 206 H 102 Troponin I 0.096 NT-Pro-B Natriuret Pep 08/10/18 08/10/18 08/10/18 01:22 07:43 07:43 Creatine Kinase 100 Troponin I 0.094 0.099 NT-Pro-B Natriuret Pep 08/13/18 04:34 Creatine Kinase Troponin I NT-Pro-B Natriuret Pep 1220 H Impressions: Knee X-Ray 08/09/18 00:00 IMPRESSION: Knee joint effusion. No acute fracture. Osteoarthritis patellofemoral and medial compartments Cervical Spine CT 08/09/18 10:22 IMPRESSION: No acute posttraumatic changes. Minimal degenerative change. Head CT 08/09/18 10:22 IMPRESSION: NO ACUTE INTRACRANIAL IMAGING FINDINGS. Mild mucosal thickening both maxillary sinuses. EVIDENCE OF ACUTE STROKE: NO. Carotid Doppler Study 08/10/18 00:00 IMPRESSION: NO HEMODYNAMICALLY SIGNIFICANT STENOSIS. Head MRI 08/10/18 11:06 IMPRESSION: Acute, nonhemorrhagic infarcts bilateral frontal lobe. EVIDENCE OF ACUTE STROKE: YES. Right anterior cerebral and left middle cerebral arteries. Chest X-Ray 08/11/18 18:51 IMPRESSION: Mild bilateral basilar subsegmental atelectasis. No dense consolidation. Probable trace left pleural effusion. 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: Yes - Notes Notes: Patient scheduled for a transesophageal echocardiogram at [facility]. Hopefully will be able to know more about mitral stenosis and any cardiac embolic source. Currently not on anticoagulation due to large area of stroke. Patient noted to be making very satisfactory progress. As regards mitral stenosis, right now they prefer medical management. Patient would need to go to a rehab facility. If patient condition significantly improves then further cardiovascular workup can be initiated at that time. CVA cerebrovascular accident: Coleman to be cardioembolic as carotid stenosis has been ruled out. Patient has mitral stenosis which is felt to be moderate to severe. Therefore patient at increased risk. Chronic anticoagulation is indicated but currently on hold due to large area of cerebrovascular accident and brain injury. Non-STEMI: Coleman to be type II. Could well now in retrospect be related to coronary vasospasm from cerebrovascular accident. No ischemia workup is being planned. History of fall, most likely related to CVA. Dehydration: Currently improving. Patient p.o. intake would need to be monitored. Hypertension: Blood pressure is adequately controlled. Would be liberal with blood pressure control in this lady with acute stroke. Mitral stenosis: Patient is noted to have moderate to severe mitral stenosis. Patient has shown significant improvement therefore could become a candidate for any open heart surgery for mitral stenosis should this be found to be severe. At this point however recommend medical management. Low threshold for amiodarone use if patient goes into atrial fibrillation. - Time Time with patient: 15-25 minutes - CODE STATUS was discussed, patient remains full code. Surrogate decision-maker unchanged. Multiple medical problems were addressed. More than 50% of the time spent coordinating care, discussing management plans with involved caregivers. Management plans discussed with involved personnels. Medical decision making was of moderate to high complexity , patient's has multiple comorbidities. Will sign off. Please reconsult if needed. Medications reviewed and adjusted accordingly: Yes
[2018-08-14] MEDS: ACETAMINOPHEN 325 MG TABLET PO PRN (19:58)
[2018-08-14] MEDS: ATORVASTATIN CALCIUM 80 MG TABLET PO SCH (21:31)
[2018-08-15 05:31] LABS: HEMATOCRIT 35.3 % (36.0-47.0); HEMOGLOBIN 12.1 g/dL (12.0-15.5); MEAN CORPUSCULAR HEMOGLOBIN 31.1 pg (27.0-33.4); MEAN CORPUSCULAR HGB CONC 34.2 g/dL (32.0-36.0); MEAN CORPUSCULAR VOLUME 91 fl (80-97); PLATELET COUNT 175 10^3/uL (150-450); RED BLOOD COUNT 3.89 10^6/uL (3.72-5.28); RED CELL DISTRIBUTION WIDTH 14.7 % (11.5-14.0); WHITE BLOOD COUNT 10.1 10^3/uL (4.0-10.5)
[2018-08-15 06:02] LABS: ALANINE AMINOTRANSFERASE 31 U/L (9-52); ALBUMIN 2.5 g/dL (3.5-5.0); ALKALINE PHOSPHATASE 80 U/L (38-126); ANION GAP 5 (5-19); ASPARTATE AMINO TRANSFERASE 40 U/L (14-36); BILIRUBIN,DIRECT 0.1 mg/dL (0.0-0.4); BILIRUBIN,TOTAL 0.5 mg/dL (0.2-1.3); BLOOD UREA NITROGEN 24 mg/dL (7-20); CALCIUM 8.9 mg/dL (8.4-10.2); CARBON DIOXIDE 29 mmol/L (22-30); CHLORIDE 104 mmol/L (98-107); GLUCOSE 104 mg/dL (75-110); POTASSIUM 4.7 mmol/L (3.6-5.0); SODIUM 137.5 mmol/L (137-145); TOTAL PROTEIN 5.3 g/dL (6.3-8.2)
[2018-08-15] MEDS: CEPHALEXIN 500 MG CAPSULE PO SCH ×3 (07:10→17:47)
[2018-08-15] MEDS: LEVOTHYROXINE SODIUM 0.1 MG TABLET PO SCH (07:11)
[2018-08-15] MEDS: HEPARIN SOD (PORCINE) 5,000 UNIT/ML 1 ML SYRINGE SUBCUT SCH ×3 (07:11→21:21)
[2018-08-15] MEDS: IPRATROPIUM/ALBUTEROL 0.5-2.5 MG/3 ML AMPUL NEB SCH ×2 (08:13→19:59)
[2018-08-15] MEDS: DOCUSATE SODIUM 100 MG CAPSULE PO SCH ×2 (11:26→17:47)
[2018-08-15] MEDS: CLOPIDOGREL BISULFATE 75 MG TABLET PO SCH (11:27)
[2018-08-15] MEDS: NEOMY/BACITRAC ZN/POLY OINT 15 GM TP SCH ×2 (11:27→17:47)
[2018-08-15] MEDS: FAMOTIDINE 20 MG TABLET PO SCH ×2 (11:27→21:21)
[2018-08-15] MEDS: ASPIRIN 81 MG TABLET, ENT COATED PO SCH (11:27)
[2018-08-15] MEDS: SILVER SULFADIAZINE 1% CREAM 25 GM TP SCH (11:27)
--- NOTE | 2018-08-15 17:16 | PDOC PROGRESS REPORT ---
Subjective Progress Note for:: 08/15/18 Subjective:: JESUS CLARK is a 88 year old female with a known past medical history of hypertension and hypothyroidism who was admitted 08/09/18 for elevated troponin , dehydration, and generalized weakness related to a fall at home resulting in 4 days on the floor prior to being discovered by her enterostomal nurse. The patient was seen this afternoon on rounds following her return from [facility]. The patient is sitting up in bed eating lunch with her son at the bedside. Patient is able to answer all orientation questions appropriately. Speech is clear. When asked why she is in the hospital, the patient states she understands her diagnosis but she will not elaborate. The son states the patient is "too upset to talk about it." Notable left-sided weakness in the upper and lower extremity. 3/5 strength. 5/5 strength in RUE and RLE. MIKE completed today shows no evidence of cardiac embolic origin of stroke. Currently working with discharge planning to place the patient in acute rehab. Reason For Visit: ELEVATED TROPONIN,DEHYDRATION,FALL Physical Exam Vital Signs: Temp Pulse Resp BP Pulse Ox 98.0 F 78 16 150/49 H 96 08/15/18 07:29 08/15/18 14:00 08/15/18 08:13 08/15/18 07:29 08/15/18 08:13 Intake & Output 08/14/18 08/15/18 08/16/18 06:59 06:59 06:59 Intake Total 779 1331 Balance 779 1331 Weight 84.3 kg 83.5 kg Results Laboratory Results: 08/15/18 04:48 08/15/18 04:48 08/15/18 08/15/18 04:48 04:48 WBC 10.1 RBC 3.89 Hgb 12.1 Hct 35.3 L MCV 91 MCH 31.1 MCHC 34.2 RDW 14.7 H Plt Count 175 Sodium 137.5 Potassium 4.7 Chloride 104 Carbon Dioxide 29 Anion Gap 5 BUN 24 H Creatinine 0.77 Est GFR ( Amer) > 60 Est GFR (Non-Af Amer) > 60 Glucose 104 Calcium 8.9 Total Bilirubin 0.5 AST 40 H ALT 31 Alkaline Phosphatase 80 Total Protein 5.3 L Albumin 2.5 L 08/09/18 08/09/18 08/10/18 19:35 19:35 01:22 Creatine Kinase 206 H 102 Troponin I 0.096 NT-Pro-B Natriuret Pep 08/10/18 08/10/18 08/10/18 01:22 07:43 07:43 Creatine Kinase 100 Troponin I 0.094 0.099 NT-Pro-B Natriuret Pep 08/13/18 04:34 Creatine Kinase Troponin I NT-Pro-B Natriuret Pep 1220 H Impressions: Knee X-Ray 08/09/18 00:00 IMPRESSION: Knee joint effusion. No acute fracture. Osteoarthritis patellofemoral and medial compartments Cervical Spine CT 08/09/18 10:22 IMPRESSION: No acute posttraumatic changes. Minimal degenerative change. Head CT 08/09/18 10:22 IMPRESSION: NO ACUTE INTRACRANIAL IMAGING FINDINGS. Mild mucosal thickening both maxillary sinuses. EVIDENCE OF ACUTE STROKE: NO. Carotid Doppler Study 08/10/18 00:00 IMPRESSION: NO HEMODYNAMICALLY SIGNIFICANT STENOSIS. Head MRI 08/10/18 11:06 IMPRESSION: Acute, nonhemorrhagic infarcts bilateral frontal lobe. EVIDENCE OF ACUTE STROKE: YES. Right anterior cerebral and left middle cerebral arteries. Chest X-Ray 08/11/18 18:51 IMPRESSION: Mild bilateral basilar subsegmental atelectasis. No dense consolidation. Probable trace left pleural effusion. Assessment & Plan - Diagnosis (1) Acute ischemic cerebrovascular accident (CVA) involving anterior cerebral artery territory Is this a current diagnosis for this admission?: Yes Plan: The patient was admitted for generalized weakness, elevated troponin, and dehydration following a fall at home with prolonged downtime; patient found approximately 4 days after her fall. No evidence of rhabdomyolysis and renal function was preserved. Neuro exam waxes and wanes - initially exam was unremarkable, other than poor patient participation and generalized weakness. The following day, the patient was much more alert and noted to have clear left-sided weakness. Initial EKG shows NSR with a prolonged QT interval, CXR benign, c-spine CT revealed chronic degenerative changes only, and head CT was notable for prominent ventricles secondary to involutional atrophy and mild mucosal thickening of both maxillary sinuses but no evidence of acute stroke. Head MRI revealed a large R anterior cerebral artery territory infarct measuring 5.2 x 1.8 cm and L MCA watershed infarct measuring 5 x 3 mm indicating probable embolic etiology or cardiac shunt. Carotid Doppler was negative for hemodynamically significant stenosis. Echocardiogram revealed normal LVEF with mild LVH. The mitral valve was thickened and calcified with reduced mobility and moderate to severe mitral stenosis. Moderate aortic incompetence was noted. TSH, lipid panel, A1c are all acceptable. MIKE completed today at [facility] -results indicative of LVEF 55%, mild MR, moderate mitral stenosis, moderate mitral valve leaflet calcification, mild TR, moderate AR, aortic valve appears moderately sclerotic, pulmonic valvular regurgitation. Nothing indicative of cardiac embolic source. The patient is admitted to [facility] for acute stroke. Bedside swallow eval was normal; toleratingcardiac diet Continue aspirin, Atorvastatin, 80 mg, and Plavix 75 mg daily. PT/OT/speech therapy [facility] was contacted; spoke with Dr. Morales (Neurology). Dr Morales advised that in moderate to large ischemic stroke suspected to be embolic in nature chronic anticoagulation is held for 10-14 days to reduce risk of conversion to hemorrhagic CVA; at that time discontinue antiplatelet therapy. Will require SNF for short term rehab at discharge; discharge planning is consulted. Recommendations are to stop ASA and begin Coumadin therapy on 08/23/18; family is still discussing, have not given final authorization. (2) Acute ischemic cerebrovascular accident (CVA) involving left middle cerebral artery territory Is this a current diagnosis for this admission?: Yes Plan: as above (3) Elevated troponin Is this a current diagnosis for this admission?: Yes Plan: Type II NSTEMI. On admission, the patient was noted to have an elevated troponin to 0.117; peaked at 0.126 and now trended down to 0.99. No longer trending. CK is minimally elevated to 148; peaked at 206 and now normal. Myoglobin elevated to 469. Chest x-ray is benign. EKG reveals NSR with prolonged QTC. No acute changes/ST segment elevation or depression. TSH, lipid panel, A1c acceptable. Echocardiogram reveals severe valvular disease; MIKE results listed above. The patient is admitted on continuous cardiac telemetry. Daily aspirin and high-dose statin therapy. Norvasc is held to allow permissive hypertension for CVA; patient's blood pressures remain acceptable, no indication to resume medication. Cardiology consultation; Dr. Hough reports low suspicion for ACS. Believe the patient had a troponin leak secondary to hypotension at time of her fall. (4) Dehydration Is this a current diagnosis for this admission?: Yes Plan: Resolved. Creatinine has normalized and BUN trending down. Secondary to poor p.o. intake as a result of fall and immobility x 4 days. Evidenced by elevated hemoglobin, elevated BUN, mildly elevated creatinine. Encourage p.o. intake. Strict I&O's. Daily chemistry (5) Fall Qualifiers: Encounter type: initial encounter Qualified Code(s): W19.XXXA - Unspecified fall, initial encounter Is this a current diagnosis for this admission?: Yes Plan: The patient reports that she had a fall at home due to her knees giving out; likely secondary to CVA. The patient is typically independently ambulatory without assistive devices. Per family, the patient is able to climb a flight of stairs and completes her own grocery shopping while ambulatory. PT/OT Fall precautions. Discharge planning is consulted; will require acute rehab following this hospitalization . (6) Hypothyroid Is this a current diagnosis for this admission?: Yes Plan: TSH 4.65 Continue the patient's home dose of levothyroxine. (7) Left arm cellulitis Is this a current diagnosis for this admission?: Yes Plan: Continued improvement; vesicles have resolved, erythema is significantly improved. TMax last 48 hours is 99.6. WBC 10.8 The patient has numerous scattered ecchymosis and skin tears to all extremities. On exam yesterday, her left upper extremity is noted to have a skin tear to the left medial wrist with purulent drainage, erythema with small fluid-filled vesicles to her AC, and increased warmth. Continue p.o. Keflex. (8) Left knee pain Qualifiers: Chronicity: acute Qualified Code(s): M25.562 - Pain in left knee Is this a current diagnosis for this admission?: Yes Plan: Patient's left knee is noted to have a 2 cm unstageable pressure wound to her knee with medial erythema and generalized edema following a fall. Left knee x-ray reveals joint effusion, no acute fracture, osteoarthritis. Tylenol as needed for discomfort. Ice and repositioning for discomfort. Orthopedics evaluated the knee; fortunately finds the wound to be superficial. Patient may follow-up as an outpatient for persistent edema or pain. (9) Leukocytosis Qualifiers: Leukocytosis type: unspecified Qualified Code(s): D72.829 - Elevated white blood cell count, unspecified Is this a current diagnosis for this admission?: Yes Plan: Initially was likely inflammatory reaction related to acute CVA, fall, and prolonged downtime. Recurrence is related to cellulitis. Urinalysis is negative. CXR is benign. Antibiotics as above. (10) Tachypnea on examination Is this a current diagnosis for this admission?: Yes Plan: Resolved. Tachypnea and wheezing is resolved; maintaining oxygen saturations on room air. Patient denies all symptoms of dyspnea, orthopnea, cough. Chest x-ray revealed mild bilateral basilar subsegmental atelectasis with no dense consolidations and a probable trace left pleural effusion. IV fluids have been discontinued; gentle IV diuresis with furosemide. Scheduled and as needed nebulizers. Supplemental oxygen as needed to maintain oxygen saturations greater than 90% Incentive spirometer to bedside. Encourage mobility. (11) Thrombocytopenia Is this a current diagnosis for this admission?: Yes Plan: Improving; 176--> 115--> 89--> 104 Platelets of subsequently trended down to 89; possible due to IV fluid resuscitation (patient received ~7 L IVF over a 3 day period) IV fluids are discontinued; providing gentle IV diuresis with furosemide due to fluid volume overload. Will continue to monitor closely; no evidence of bleeding. Plan for CBC in AM. - Time Time Spent with patient: 15-24 minutes Medications reviewed and adjusted accordingly: Yes Anticipated discharge: Acute Rehab Within: within 48 hours - Inpatient Certification Based on my medical assessment, after consideration of the patient's comorbidities, presenting symptoms, or acuity I expect that the services needed warrant INPATIENT care.: Yes I certify that my determination is in accordance with my understanding of Medicare's requirements for reasonable and necessary INPATIENT services [42 CFR 412.3e].: Yes Medical Necessity: Need For Continuous Telemetry Monitoring, Risk of Complication if Not Cared For in Hospital - Plan Summary Plan Summary: TRANSFER TO ACUTE REHAB
[2018-08-15] MEDS: ATORVASTATIN CALCIUM 80 MG TABLET PO SCH (21:21)
[2018-08-16] MEDS: CEPHALEXIN 500 MG CAPSULE PO SCH ×3 (01:09→14:02)
[2018-08-16] MEDS: LEVOTHYROXINE SODIUM 0.1 MG TABLET PO SCH (05:13)
[2018-08-16] MEDS: HEPARIN SOD (PORCINE) 5,000 UNIT/ML 1 ML SYRINGE SUBCUT SCH ×2 (05:14→13:49)
[2018-08-16] MEDS: IPRATROPIUM/ALBUTEROL 0.5-2.5 MG/3 ML AMPUL NEB SCH (07:46)
--- NOTE | 2018-08-16 09:38 | PDOC TRANSFER SUMMARY ---
General - Admit/Disc Date/PCP Admission Date/Primary Care Provider: 08/09/18 15:44 RICHI BRAY MD Discharge Date: 08/16/18 - Discharge Diagnosis (1) Acute ischemic cerebrovascular accident (CVA) involving anterior cerebral artery territory Is this a current diagnosis for this admission?: Yes (2) Acute ischemic cerebrovascular accident (CVA) involving left middle cerebral artery territory Is this a current diagnosis for this admission?: Yes (3) Elevated troponin Is this a current diagnosis for this admission?: Yes (4) Dehydration Is this a current diagnosis for this admission?: Yes (5) Fall Is this a current diagnosis for this admission?: Yes (6) Hypothyroid Is this a current diagnosis for this admission?: Yes (7) Left arm cellulitis Is this a current diagnosis for this admission?: Yes (8) Left knee pain Is this a current diagnosis for this admission?: Yes (9) Leukocytosis Is this a current diagnosis for this admission?: Yes (10) Tachypnea on examination Is this a current diagnosis for this admission?: Yes (11) Thrombocytopenia Is this a current diagnosis for this admission?: Yes - Additional Information Resuscitation Status: Full Code Home Medications: Amlodipine Besylate [Norvasc 5 mg Tablet] 5 mg PO QHS 08/09/18 Aspirin [Aspirin EC] 81 mg PO DAILY 08/09/18 Levothyroxine Sodium [Synthroid 0.1 mg Tablet] 0.1 mg PO Q6AM 08/09/18 Acetaminophen [Tylenol 325 mg Tablet] 650 mg PO Q4HP PRN tablet 08/16/18 Albuterol Sulfate [Ventolin 0.083% Neb 2.5 mg/3 mL Ampul] 2.5 mg NEB RTQ6HP PRN vial.neb 08/16/18 Atorvastatin Calcium [Lipitor 80 mg Tablet] 80 mg PO QHS tablet 08/16/18 Cephalexin Monohydrate [Keflex 500 mg Capsule] 500 mg PO Q6 #3 capsule 08/16/18 Clopidogrel Bisulfate [Plavix 75 mg Tablet] 75 mg PO DAILY tablet 08/16/18 Docusate Sodium [Colace 100 mg Capsule] 100 mg PO BID capsule 08/16/18 Famotidine [Pepcid 20 mg Tablet] 20 mg PO Q12 tablet 08/16/18 History of Present Illness Admission Date/PCP: 08/09/18 15:44 RICHI BRAY MD History of Present Illness: JESUS CLARK is a 88 year old female with a known past medical history of hypertension, hypothyroidism; otherwise MHx is limited secondary to patient confusion/and willingness to participate in conversation. The patient was found by her visiting housekeeper this morning on the floor. Per patient she fell approximately 4 days ago when her knees gave out on her. She was able to crawl to the bed but was unable to stand back up or reach a phone for assistance. The patient reports that she did hit her head but denies loss of consciousness. Upon being told that the patient was recommended to be admitted, she refused to answer further questions. She was noted to be alert and oriented to self and year. She denied headache, dizziness, chest pain, palpitations, dyspnea and only complaint of left knee pain. Evaluation in the emergency department revealed leukocytosis (WBCs 16.2), dehydration (elevated hemoglobin of 15.6, BUN of 44, and creatinine of 0.99), minimally elevated CK (148), and an elevated troponin to 0.117. EKG was without acute findings; no ST segment elevation or depression. Chest x- ray, head CT, C-spine CT are unremarkable other than chronic changes. She is referred to the hospitalist service for admission and management of a type II non-STEMI, dehydration, generalized weakness resulting in fall. Hospital Course Hospital Course: JESUS CLARK is a 88 year old female with a known past medical history of hypertension and hypothyroidism who was admitted 08/09/18 for elevated troponin , dehydration, and generalized weakness related to a fall at home resulting in 4 days on the floor prior to being discovered by her visiting housekeeper. Surprisingly, the patient arrived to [facility] with preserved renal function and no evidence of rhabdomyelitis. The patient had numerous scattered ecchymosis and skin tears to all extremities and R face. On exam, her left upper extremity was noted to have a skin tear to the left medial wrist with purulent drainage, erythema with small fluid-filled vesicles to her AC, and increased warmth. She was treated with PO antibiotics while inpatient. The patients neuro exam would wax and wane - initially normal and later developing L sided weakness in LUE and LLE. Initial head CT done was negative but head MRI done 08/10/2018 revealed a large R anterior cerebral artery territory infarct measuring 5.2 x 1.8 cm and L MCA watershed infarct measuring 5 x 3 mm indicating probable embolic etiology or cardiac shunt. As a result of these findings, a stroke workup was completed, included MIKE. Carotid Doppler was negative for hemodynamically significant stenosis. (TTE) Echocardiogram revealed normal LVEF with mild LVH. The mitral valve was thickened and calcified with reduced mobility and moderate to severe mitral stenosis. Moderate aortic incompetence was noted. The patient was sent to [facility] for a MIKE on 08/15/2018 - results indicative of LVEF 55%, mild MR, moderate mitral stenosis, moderate mitral valve leaflet calcification, mild TR, moderate AR, aortic valve appears moderately sclerotic, pulmonic valvular regurgitation. Nothing indicative of cardiac embolic source. [facility] was contacted; consulted with Dr. Morales (Neurology). Dr Morales advised that in moderate to large ischemic stroke suspected to be embolic in nature chronic anticoagulation is held for 10-14 days to reduce risk of conversion to hemorrhagic CVA; at that time discontinue antiplatelet therapy. Recommendations are to stop ASA and begin Coumadin therapy on . In addition to her CVA, the patient was diagnosed with a Type II NSTEMI. On admission, the patient was noted to have an elevated troponin to 0.117; peaked at 0.126 and trended down to 0.99. EKG reveals NSR with prolonged QTC. No acute changes/ST segment elevation or depression. ECHO results listed above. The patient was on daily aspirin and high-dose statin therapy. Norvasc was held to allow permissive hypertension for CVA; patient's blood pressures remain acceptable, no indication to resume medication. Cardiology was consulted, Dr. Hough reports low suspicion for ACS. Believe the patient had a troponin leak secondary to hypotension at time of her fall. The patient is believed to be safe for transfer at this time. Family agrees that acute rehab is the best option. Physical Exam Vital Signs: Temp Pulse Resp BP Pulse Ox 98.0 F 69 18 153/60 H 92 08/16/18 07:37 08/16/18 07:46 08/16/18 07:46 08/16/18 07:37 08/16/18 07:46 Intake & Output 08/15/18 08/16/18 08/17/18 06:59 06:59 06:59 Intake Total 1331 200 300 Balance 1331 200 300 Weight 83.5 kg 82 kg Results Laboratory Results: 08/15/18 04:48 08/15/18 04:48 08/09/18 08/09/18 08/10/18 19:35 19:35 01:22 Creatine Kinase 206 H 102 Troponin I 0.096 NT-Pro-B Natriuret Pep 08/10/18 08/10/18 08/10/18 01:22 07:43 07:43 Creatine Kinase 100 Troponin I 0.094 0.099 NT-Pro-B Natriuret Pep 08/13/18 04:34 Creatine Kinase Troponin I NT-Pro-B Natriuret Pep 1220 H Impressions: Knee X-Ray 08/09/18 00:00 IMPRESSION: Knee joint effusion. No acute fracture. Osteoarthritis patellofemoral and medial compartments Cervical Spine CT 08/09/18 10:22 IMPRESSION: No acute posttraumatic changes. Minimal degenerative change. Head CT 08/09/18 10:22 IMPRESSION: NO ACUTE INTRACRANIAL IMAGING FINDINGS. Mild mucosal thickening both maxillary sinuses. EVIDENCE OF ACUTE STROKE: NO. Carotid Doppler Study 08/10/18 00:00 IMPRESSION: NO HEMODYNAMICALLY SIGNIFICANT STENOSIS. Head MRI 08/10/18 11:06 IMPRESSION: Acute, nonhemorrhagic infarcts bilateral frontal lobe. EVIDENCE OF ACUTE STROKE: YES. Right anterior cerebral and left middle cerebral arteries. Chest X-Ray 08/11/18 18:51 IMPRESSION: Mild bilateral basilar subsegmental atelectasis. No dense consolidation. Probable trace left pleural effusion. Status: Imported from PACS Transfer Plan - Disposition Transfer Plan: Transfer from [facility] to Acute Rehab - Time Spent with Patient Time spent with patient: Greater than 30 Minutes Qualifiers - * PATIENT BEING DISCHARGED WITH ANY OF THE FOLLOWING DIAGNOSIS: Stroke Stroke Pt being discharged on Anti-thrombolytic therapy?: Yes Stroke Pt being discharged on Anti-coagulation therapy?: No Reason(s) for not prescribing Anti-coagulation therapy:: Contraindicated - PLAN TO START ANTI-COAGULATION ON 08/23/2018. PER [facility], NO ANTI- COAGULATION UNTIL 08/23 TO PREVENT HEMORRHAGIC CONVERSION OF ACUTE CVA. Stroke Pt being discharged on Statins?: Yes Plan Time Spent: Greater than 30 Minutes
[2018-08-16] MEDS: DOCUSATE SODIUM 100 MG CAPSULE PO SCH (10:19)
[2018-08-16] MEDS: ASPIRIN 81 MG TABLET, ENT COATED PO SCH (10:20)
[2018-08-16] MEDS: CLOPIDOGREL BISULFATE 75 MG TABLET PO SCH (10:20)
[2018-08-16] MEDS: NEOMY/BACITRAC ZN/POLY OINT 15 GM TP SCH (10:20)
[2018-08-16] MEDS: FAMOTIDINE 20 MG TABLET PO SCH (10:20)
[2018-08-16] MEDS: SILVER SULFADIAZINE 1% CREAM 25 GM TP SCH (10:20)
[2018-08-16 15:32] VITALS: BP 154/51
== END 2018-08-16 17:44 | DRG 64 ==
LOC: ER 09:58 → EH 15:23 → OBSVTOIN 15:44 → 4S 16:45 → 3W 08-10 14:07
PROVIDERS: ADMIT Internal Medicine; ATTEND Internal Medicine
DX: I63.421 Cerebral infarction due to embolism of right anterior cerebral artery (principal); I21.A1 Myocardial infarction type 2; G81.94 Hemiplegia, unspecified affecting left nondominant side; L03.114 Cellulitis of left upper limb; I63.412 Cerebral infarction due to embolism of left middle cerebral artery; R73.9 Hyperglycemia, unspecified; E03.9 Hypothyroidism, unspecified; E86.0 Dehydration; I10 Essential (primary) hypertension; S81.812A Laceration without foreign body, left lower leg, initial encounter; S81.811A Laceration without foreign body, right lower leg, initial encounter; W18.30XA Fall on same level, unspecified, initial encounter; Y92.002 Bathroom of unspecified non-institutional (private) residence as the place of occurrence of the external cause; S41.112A Laceration without foreign body of left upper arm, initial encounter; S41.111A Laceration without foreign body of right upper arm, initial encounter; M19.90 Unspecified osteoarthritis, unspecified site; I95.89 Other hypotension; S00.81XA Abrasion of other part of head, initial encounter; L89.890 Pressure ulcer of other site, unstageable; R29.810 Facial weakness; D72.829 Elevated white blood cell count, unspecified; I05.0 Rheumatic mitral stenosis; D69.59 Other secondary thrombocytopenia; Z87.891 Personal history of nicotine dependence; Z90.49 Acquired absence of other specified parts of digestive tract; Z23 Encounter for immunization; Z90.710 Acquired absence of both cervix and uterus; Z79.82 Long term (current) use of aspirin; Z79.899 Other long term (current) drug therapy
CPT/HCPCS: 36415; 70450; 70551; 71045; 72125; 80048; 80053; 80061; 81001; 82550; 82962; 83036; 83874; 83880; 84443; 84484; 85025; 85027; 87086; 90686; 90715; 93005; 93010; 93306; 93880; 94640; 94799; 99284; G8978-GP; G8979-GP; G8996-GN; G8997-GN; G8998-GN; J1644; J1940; J3490; J7030; J7120; J7620